=== PATIENT | female | born 1950 | race Caucasian/White ===

== ENCOUNTER 2024-04-17 14:09 | Inpatient (IN) | payer MEDICARE, SELFPAY ==
[2024-04-17] VITALS (23 sets, daily range): BP systolic 140–176; BP diastolic 75–105; PULSE 69–87; RESP 10–22; TEMP 36.9–37.2; O2SAT 93–97; BMI 24.9; BMI 26.1
--- OUTSIDE RECORDS SUMMARY | 2024-04-17 14:12 | XMS_ITS | Encounter Summary ---
Author Organization [facility] Address [address] [place] [address] Care Team Providers Care Hydroelectric Plant Operator Name Role Phone Shimon Xavier MD Primary Care Provider [phone] Gonzalez Bills MD Unavailable [phone] Gonzalez Bills MD Unavailable [phone] Encounter Details Date Type Department Care Team (Late st Contact Info) Description 12/21/2019 Ophth Exam [facility] - Eye Care Service Line [address] [place] [phone] Jose Rand MD [address] [place] [address] [phone] Social History Tobacco Use Types Packs/Day Years Used Date Smoking Tobacco: Never Assessed Comments Unknown Sex and Gender Information Value Date Recorded Sex Assigned at Not on file Legal Sex Female 3:27 AM INTELLECTUAL PROPERTY COUNSEL Gender Identity Not on file Sexual Orientation Not on file COVID-19 Exposure Response Date Recorded In the last month, have you been in contact with someone who was confirmed or suspected to have Coronavirus / COVID-19? No / Unsure 12/21/2019 12:04 PM INTELLECTUAL PROPERTY COUNSEL documented as of this encounter Plan of Treatment Not on file documented as of this encounter Visit Diagnoses Not on filedocumented in this encounter Care Teams Hydroelectric Plant Operator Relationship Specialty Start Date End Date Shimon Xavier MD [facility] [id number] [place] [address] PCP - General Family Medicine 12/21/19 Gonzalez Bills MD [address] [place] [phone] Assigned PCP 06/11/20 01/21/22 Gonzalez Bills MD [address] [place] [address] Assigned PCP 04/02/22 12/30/22 documented as of this encounter
--- OUTSIDE RECORDS SUMMARY | 2024-04-17 14:12 | XMS_ITS | Clinical Summary ---
Author Organization [employer] [facility] Address [facility] [place] [address] Care Team Providers Care Dandy Operator Name Role Phone Shimon Xavier MD Primary Care Provider Allergies No known active allergies Medications artificial tears, peg 400-propylene glycol, (Systane, propylene glycoL,) 0.4-0.3 % drop ophthalmic Place 1 Drop into the eye(s). 12/27/19 20 Active metroNIDAZOLE 0.75 % creamIndications:R osacea Apply topically to face 1-2 times daily 45 g 04/01/19 23 Active metoprolol succinate (TOPROL XL) 50 mg sustained-release tabletIndications: Anxiety Take 1 Tablet (50 mg) by mouth once daily. 90 Tablet 3 02/26/19 25 Active rosuvastatin (CRESTOR) 20 mg tabletIndications: Mixed hyperlipidemia Take 1 Tablet (20 mg) by mouth at bedtime. 90 Tablet 3 02/26/19 25 Active sertraline (ZOLOFT) 100 mg tabletIndications: Anxiety Take 1 Tablet (100 mg) by mouth once daily. 90 Tablet 3 02/26/19 25 Active gabapentin (NEURONTIN) 100 mg capsuleIndications :RLS (restless legs syndrome) Take 1 capsule 2 hours prior to bedtime. 90 Capsule 3 03/29/19 25 Active pramipexole (MIRAPEX) 0.5 mg tabletIndications: RLS (restless legs syndrome) Take 1 Tablet (0.5 mg) by mouth at bedtime. 90 Tablet 3 02/26/19 025 Discontin ued(*Med ineffecti ve) gabapentin (NEURONTIN) 100 mg capsuleIndications :RLS (restless legs syndrome) Take 2 hours prior to bedtime. 90 Capsule 3 03/29/19 25 025 Discontin ued(Reord er (E-cancel not sent)) Active Problems Problem Noted Date Diagnosed Date History of colonic polyps 05/10/2022 Overview (03/29/2024): 2022-no polyp; repeat 2027. 04/2018 3 polyp; largest 10 mm repeat 2021 Vitamin D deficiency 03/23/2020 Routine health maintenance 11/16/2018 Overview (04/02/2024): Colonoscopy, 04/28, recheck 5 yrs mammo 04/02 DEXA 09/24, nl Hemorrhoids 11/09/2018 Alopecia 04/28/2017 Anxiety 03/10/2017 HTN (hypertension) 06/21/2016 Ocular rosacea Resolved Problems Problem Noted Date Diagnosed Date Resolved Date Diverticular disease of large intestine 11/09/2018 11/05/2023 Polyp of colon 11/09/2018 11/05/2023 Encounters Date Type Department Care Team Description 04/17/2024 Nurse Triage [facility] [place] [id number] [place] [address] Shimon Xavier MD Dizziness 04/17/2024 Nurse/Clinic Staff Only [facility] [place] [id number] [place] [phone] Shimon Xavier MD Dizziness (Patient was in [employer] and checking out and got so dizzy she had to have someone walk her out to her car) 04/01/2024 10:00 AM CAPTAIN CANNERY TENDER Ancillary Procedure [facility] [address] [facility] [address] [place] [address] 04/01/2024 Travel 03/29/2024 10:30 AM CAPTAIN CANNERY TENDER Office Visit [facility] [place] [id number] [place] [address] Florecita Sosa MD memory issues; Medication Management (Would like to discuss changing her restless leg syndrome medication.) 03/29/[address] [address] Florecita Sosa MD Medication Management (Gabapentin) 03/29/2024 Travel 03/27/2024 Nurse Triage [address] [address] Shimon Xavier MD Error-please disregard (error) 02/27/2024 10:40 AM CAPTAIN CANNERY TENDER Office Visit [address] [address] Shimon Xavier MD Medicare ANNUAL (subsequent) Visit; Immunization/Inject ion 02/27/2024 Travel 02/02/[address] [address] Rema Kumar MD Refill Request (Rosuvastatin) 01/29/[address] [address] Rema Kumar MD Refill Request (pramipexole (MIRAPEX) 0.5 mg tablet) from Last 3 Months Immunizations Immunization Administration Dates Next Due COVID-19 vaccine (Moderna 100mcg/0.5mL) LUCIO MDV 05/01/2020,04/04/2020 COVID-19 vaccine (Moderna Lizandro kirk 50mcg/0.25mL) ROCAEL VALDES 01/05/2021 Influenza, High-dose Inactivated 01/15/2016,01/06 Influenza, IIV3 (Age 6-35 mos) 11/01/2008 Influenza, IIV3 (Age >=3 years) 01/17/2006,12/16 Influenza, Inactivated AIIV4 (Age 65+ Years) Preserv Free 01/17/2023,12/17/2021,01/05/2021,2019 Influenza, Inactivated IIV3 (Age 65+ Years) Preserv Free 02/27/2024,10/31/2016 Pneumococcal Poly,23-Valent (Pneumovax) 11/07/2019 Pneumococcal conj 13-Valent (Prevnar 13) 09/14/2018 Tdap 10/11/2018,08/15/2007 Tuberculin (PPD) 04/25/2016,04/11/2016 Family History Medical History Relation Name Comments Hypertension Brother 1 Heart Disease Brother 2 Stroke Father Good Health Mother Hypothyroidism Mother Relation Name Status Comments Brother 1 Brother 2 Father Stroke Mother (Age 92) Old Age/De mentia Social History Tobacco Use Types Packs/Day Years Used Date Smoking Tobacco: Never Passive Smoke Exposure: Never Smokeless Tobacco: Never Tobacco Cessation:Counseling Given: No Alcohol Use Standard Drinks/Week Comments Yes 0 (1 standard drink = 0.6 oz pur e alcohol) 4 glasses of wine everyday. PHQ-2 Answer Date Recorded PHQ-2 TOTAL SCORE 1 02/27/2024 Social Connections Answer Date Recorded Do you often feel lonely or isolated from those around you? 0 11/05/2023 Financial Resource Strain Answer Date R ecorded Difficulty of Paying Living Expenses 3 11/05/2023 Difficulty of Paying Living Expenses Not on file 11/05/2023 Food Insecurity Answer Date Recorded Do you worry your food will run out before you are able to buy more? 1 02/27/2024 Transportation Needs Answer Date Record ed Does lack of transportation keep you from medica l appointments? 1 02/27/2024 Does lack of transportation keep you from work, meetings or getting things that you need? 1 02/27/2024 Housing Stability Answer Date Recorded What is your housing situation today? 1 02/27/2024 Utilities Answer Date Recorded Do you have trouble paying f or utilities (for example, heat, electricity, water, phone)? 1 02/27/2024 Comments No Sex and Gender Information Value Date Recorded Sex Assigned at Not on file Legal Sex Female 7:30 AM CAPTAIN CANNERY TENDER Gender Identity Not on file Sexual Orientation Not on file Obstetrics History Para Term AB IAB SAB Ectopic Multiple Livin g Live Births 3 2 2 1 1 2 Date Outcome GA Total Labor Labor/2nd/3rd Weight Sex Type Anes PTL Kiera A1 A5 Name Clin Term Term SAB Last Filed Vital Signs Vital Sign Reading Time Taken Comments Blood Pressure 156/79 04/17/2024 1:13 PM CDT Pulse 89 04/17/2024 1:13 PM CDT Temperature 36.4 C (97.6 F) 04/17/2024 12:58 PM CDT Respiratory Rate 16 11/05/2023 1:27 PM CDT Oxygen Saturation 96% 04/17/2024 1:13 PM CDT Inhaled Oxygen Concentration - - Weight 69.4 kg (153 lb) 03/29/2024 10:36 AM CAPTAIN CANNERY TENDER Height 162.6 cm (5' 4) 03/29/2024 10:36 AM CAPTAIN CANNERY TENDER Body Mass Index 26.26 03/29/2024 10:36 AM CAPTAIN CANNERY TENDER Plan of Treatment Upcoming Encounters Date Type Department Care Team (Late st Contact Info) Description 07/04/2024 11:00 AM CDT Office Visit [facility] [address] [place] [address] Chris France MD [address] [place] [address] Health Maintenance Due Date Last Done Comments Hepatitis C screening for ag e 18-79 10/25/1967 Zoster (shingles) series for age 50+ (1 of 2) 10/25/1999 RSV vaccine for adults or (1 - Risk 60-74 years 1-dose series) 2009 COVID-19 vaccine series ( season) 2023 01/05/2021, 05/01/2020, 04/04/2020 Medicare Wellness for age 65+ 02/27/2025, 01/17/2023, 01/07/2022, Additional history exists BMI (ht and wt on same day) for age 18+ 03/29/2025 03/29/2024, 02/27/2024, 01/17/2023, Additional history exists Depression screening for age 12+ 04/01/2025 04/01/2024, 02/27/2024, 01/17/2023, Additional history exists Mammogram for age 45-75 04/01/2025 04/01/19, 11/03/2022, 05/19/2021, Additional history exists Colonoscopy through age 75 05/07/2027 05/06/2022, Tetanus booster 10/11/2028 10/11/2018, 08/15/2007 Lipids for age 45-75 02/26/2029 02/27/2024, 01/17/2023, 01/07/2022, Additional history exists DEXA/DXA scan for age 65+ Completed 09/20/2018 Tdap Completed 10/11/2018, 08/15/2007 Pneumococcal series for age 50+ Completed , 09/14/2018 Influenza Vaccine Completed 02/27/2024, , 12/17/2021, Additional history exists Procedures Procedure Name Priority Date/Time Associated Diagnosis Comments XR MAMMO EDGARDO BILAT SCREEN IMPLANT Routine 04/01/2024 11:27 AM CAPTAIN CANNERY TENDER Encounter for screening mammogram for malignant neoplasm of breast VITAMIN D 25 (DEFICIENCY) Routine 02/27/2024 11:05 AM CAPTAIN CANNERY TENDER Vitamin D deficiency BASIC METABOLIC PANEL Routine 02/27/2024 11:05 AM CAPTAIN CANNERY TENDER HTN (hypertension) HEMOGLOBIN Routine 02/27/2024 11:05 AM CAPTAIN CANNERY TENDER Routine health maintenance LIPID PANEL Routine 02/27/2024 11:05 AM CAPTAIN CANNERY TENDER Mixed hyperlipidemia SCAN-COLONOSCOPY 05/06/2022 10:0 0 AM CDT XR DXA BONE DENSITY 2 SITES AXIAL Routine 09/20/2018 2:29 PM CDT Bone disorder from Last 3 Months or Most Recently Relevant to Health Maintenance Results * XR MAMMO EDGARDO BILAT SCREEN IMPLANT (04/01/2024 11:27 AM CAPTAIN CANNERY TENDER) Anatomical Region Laterality Modality BREASTS, Breast Left, Breast Right Bilateral Mammography Impressions 04/01/2024 4:55 PM CAPTAIN CANNERY TENDER There is no radiographic evidence for malignancy. Recommend annual mammograms. MAMMOGRAM ASSESSMENT: ACR 2 Benign PATIENTS: You will also receive a letter with your examination results in an easy to read format. If you have questions about your results, please contact your referring provider. Narrative 04/01/2024 4:55 PM CAPTAIN CANNERY TENDER For Patients: As a result of the Century Cures Act, medical imaging exams and procedure reports are released immediately into your electronic medical record. You may view this report before your referring provider. If you have questions, please contact your health care provider. XR MAMMO EDGARDO BILAT SCREEN IMPLANT [[id number]] CLINICAL HISTORY: This is an asymptomatic 73 y.o. patient. INDICATION FOR EXAM: Mammogram Screening. TECHNIQUE: CC & MLO views were obtained. Implant displacement views were obtained. This study was evaluated with the assistance of Computer-Aided Detection. Breast Tomosynthesis was used in interpretation. COMPARISON FILMS: Yes 11/03/22 [facility] 05/19/21 [facility] FINDINGS: There are scattered areas of fibroglandular density. No suspicious masses or microcalcifications. There are breast implant(s) present. Unchanged extracapsular silicone on the right. us Shimon Xavier MD MAMMO Final Result * (ABNORMAL) VITAMIN D 25 (DEFICIENCY) (02/27/2024 11:05 AM CAPTAIN CANNERY TENDER) VITAMIN D,25-OH,TOTAL,IA 18(L) 30 - 100 ng/mL [facility] Comment: Vitamin D Status 25-OH Vitamin D: Deficiency: <20 ng/mL Insufficiency: 20 - 29 ng/mL Optimal: > or = 30 ng/mL For 25-OH Vitamin D testing on patients on D2-supplementation and patients for whom quantitation of D2 and D3 fractions is required, the [facility]() 25-OH VIT D, (D2,D3), LC/MS/MS is recommended: order code 26264 (patients >2yrs). See Note 1 Note 1 For additional information, please refer to http://education.[employer] Garden.Nubee/faq/UPN556 (This link is being provided for informational/ educational purposes only.) Blood BLOOD SPECIMEN / Unknown 02/27/2024 11:05 AM CAPTAIN CANNERY TENDER 02/27/2024 11:07 AM CAPTAIN CANNERY TENDER Narrative [facility] - 02/28/2024 3:33 AM CAPTAIN CANNERY TENDER FASTING:NO FASTING: NO Shimon Xavier MD SEND OUTS Final Result [facility] [address] [place] [address], [facility] [address] [place] [address] * HEMOGLOBIN (02/27/2024 11:05 AM CAPTAIN CANNERY TENDER) HEMOGLOBIN 15.3 11.7 - 15.5 g/dL [facility] Blood BLOOD SPECIMEN / Unknown 02/27/2024 11:05 AM CAPTAIN CANNERY TENDER 02/27/2024 11:07 AM CAPTAIN CANNERY TENDER Narrative [facility] - 02/28/2024 3:41 AM CAPTAIN CANNERY TENDER FASTING:NO FASTING: NO Shimon Xavier MD HEMATOLOGY Final Result Performing Organization Address City/[facility]/ZIP Co de Phone Number [facility] [address] [place] [address], [facility] [address] [place] [address] * (ABNORMAL) LIPID PANEL (02/27/2024 11:05 AM CAPTAIN CANNERY TENDER) [facility] CHOLESTEROL, TOTAL 223(H) <200 mg/dL [facility] HDL CHOLESTEROL 78 > OR = 50 mg/dL [facility] TRIGLYCERIDES 238(H) <150 mg/dL [facility] Comment: If a non-fasting specimen was collected, consider repeat triglyceride testing on a fasting specimen if clinically indicated. Mcghee et al. J. of Clin. Lipidol. 2015;9:129-169. LDL-CHOLESTEROL 109(H) mg/dL (calc) [facility] Comment: Reference range: <100 Desirable range <100 mg/dL for primary prevention; <70 mg/dL for patients with CHD or diabetic patients with > or = 2 CHD risk factors. LDL-C is now calculated using the Medhat-Nix calculation, which is a validated novel method providing better accuracy than the Friedewald equation in the estimation of LDL-C. Medhat SS et al. ARUN. 2013;310(19): 4418-6195 (http://education.[employer]/faq/YRQ619) CHOL/HDLC RATIO 2.9 <5.0 (calc) [facility] NON HDL CHOLESTEROL 145(H) <130 mg/dL (calc) [email or web address] Comment: For patients with diabetes plus 1 major ASCVD risk factor, treating to a non-HDL-C goal of <100 mg/dL (LDL-C of <70 mg/dL) is considered a therapeutic option. Blood BLOOD SPECIMEN / Unknown 02/27/2024 11:05 AM CAPTAIN CANNERY TENDER 02/27/2024 11:07 AM CAPTAIN CANNERY TENDER Narrative [facility] - 02/28/2024 4:30 AM CAPTAIN CANNERY TENDER FASTING:NO FASTING: NO Shimon Xavier MD CHEMISTRY Final Result [facility] [address] [place] [address], [facility] [address] * BASIC METABOLIC PANEL (02/27/2024 11:05 AM CAPTAIN CANNERY TENDER) [facility] GLUCOSE 94 65 - 139 mg/dL [facility] Comment: Non-fasting reference interval UREA NITROGEN (BUN) 16 7 - 25 mg/dL [facility] CREATININE 0.65 0.60 - 1.00 mg/dL [facility] EGFR 92 > OR = 60 mL/min/1. 73m2 [email or web address] BUN/CREATININE RATIO SEE NOTE: (calc) [email or web address] Comment: Not Reported: BUN and Creatinine are within reference range. SODIUM 140 135 - 146 mmol/L [facility] POTASSIUM 4.1 3.5 - 5.3 mmol/L [email or web address] CHLORIDE 103 98 - 110 mmol/L [facility] CARBON DIOXIDE 27 20 - 32 mmol/L [facility] ELECTROLYTE BALANCE 10 7 - 17 mmol/L (calc) [facility] CALCIUM 9.6 8.6 - 10.4 mg/dL [facility] Blood BLOOD SPECIMEN / Unknown 02/27/2024 11:05 AM CAPTAIN CANNERY TENDER 02/27/2024 11:07 AM CAPTAIN CANNERY TENDER Narrative [facility] - 02/28/2024 4:30 AM CAPTAIN CANNERY TENDER FASTING:NO FASTING: NO us Shimon Xavier MD CHEMISTRY Final Result [facility] [address] [place] [address], [facility] [address] [place] [address] * SCAN-COLONOSCOPY (05/06/2022 10:00 AM CDT) Narrative Procedure Note Srinath Cisneros MD - 05/06/2022 9:17 AM CDT [facility] [address] [facility] [address], [address], [place] [address] Patient Name: Liudmila Chávez Gender: Female Exam Date: 05/06/2022 Visit Number: [id number] Age: 71 Years 6 Months Date of : 1950 Attending MD: Srinath Cisneros MD Medical Record#: [id number] ----- Procedure: Colonoscopy Indications: Previous adenomatous polyp(s), high risk colorectal cancerscreening Referring MD: Referral Self Primary MD: Shimon Xavier MD Medications: Admitting Medications: 0.9% Normal Saline at TKO Intra Procedure Medications: Patient received monitored anesthesia care. Complications: No immediate complications Procedure: An examination of the heart and lungs was performed and found to be withinacceptable limits. The patient was therefore deemed a reasonablecandidate for endoscopy and monitored anesthesia care. The risks and benefits of the procedure were explained to the patient.After obtaining informed consent, the patient received monitoredanesthesia care and I passed the scope without difficulty via the rectum to the cecum. The appendiceal orificeand ic valve were identified. The scope was retroflexed during theexamination The quality of the prep was good (Pierce/Gat Split). This was a complete examination throughout the entire colon. Findings: Diverticulosis. Location: - cecum - ascending colon - transverse colon - descending colon - sigmoid. Anal canal: internal hemorrhoid(s) Remainder of the exam is normal. Impression: Hemorrhoids, internal Diverticulosis of colon without diverticulitis Plan Repeat colonoscopy in 5 years. We will attempt to contact you at appropriate intervals via U.S. mail. Wemay not be able to find you or contact you at that time, therefore youshould know that the responsibility for following our recommendation restswith you. If you don't hear from us at the time your procedure is due,please contact our office to schedule an appointment. If your contactinformation should change, please contact our office so that we can updateyour records. Recommendation Comments: High fiber diet Electronically signed by: Srinath Cisneros MD 05/06/2022 Medications: Medication Dose Sig Description PRN Status PRN Reason Comments Advil UNKNOWN take 2 Tablet by oral route every day as needed with foodas needed Y taking as directed biotin UNKNOWN take 1 capsule by oral route every day N taking asdirected Crestor 20 mg tablet 20 mg take 1 tablet by oral route every day Ntaking as directed doxycycline hyclate UNKNOWN take 1 capsule by oral route every 12 hours Ntaking as directed metoprolol succinate ER 50 mg tablet,extended release 24 hr 50 mg take 1tablet by oral route 2 times every day N taking as directed Mirapex 0.5 mg tablet 0.5 mg take 1 Tablet by oral route every day Ntaking as directed Multivitamin unknown Oral unknown N taking as directed sertraline 100 mg tablet 100 mg take 1.5 Tablet by oral route everymorning N taking as directed Vitamin D3 UNKNOWN take 2 Tablet by Oral route once N taking as directed Allergies: Medication Name Ingredient Reaction Comment NO KNOWN ALLERGIES LATEX pt uncertain Vital Signs: Date Time Systolic Diastolic Height Weight BMI 05/06/2022 9:38 AM 145 64 64 in 149.61 25.70 Race: White Ethnicity: Not or Preferred Language: Mozambican cc: Shimon Xavier MD [facility] [phone] us Srinath EGAN OTHER Deepa l Result * XR DXA BONE DENSITY 2 SITES AXIAL (09/20/2018 2:29 PM CDT) Anatomical Region Laterality Modality Spine, HIPS, HIPL, HIPR Computed Radiography Narrative 09/20/2018 4:39 PM CDT Your patient LIUDMILA CHÁVEZ completed a BMD test on 09/20/2018 using the turboBOTZ DXA System (analysis version: 13.60) manufactured by [employer]. The following summarizes the results of our evaluation. PATIENT BIOGRAPHICAL: Name: LIUDMILA CHÁVEZ I Date: 1950 Height: 64.0 in. Gender: Female Exam Date: 09/20/2018 Weight: 140.0 lbs. Indications: ., Postmenopausal. Fractures: None. Treatments: Vitamin D. ASSESSMENT: The BMD measured at Femur Neck Left is 0.902 g/cm with a T-score of -1.0. Bone density is up to 10% below young normal. This patient is considered normal according to World Health Organization (WHO) criteria. Fracture risk is low. The probability of a major osteoporotic fracture is 8.5% within the next ten years. The probability of a hip fracture is 0.8% within the next ten years. Site Region Measured Measured WHO Young Adult BMD Date Age Classification T-score AP Spine L1-L4 09/20/2018 68.9 Normal 0.4 1.230 g/cm DualFemur Neck Left 09/20/2018 68.9 Normal -1.0 0.902 g/cm DualFemur Neck Right 09/20/2018 68.9 Normal -0.8 0.921 g/cm DualFemur Total Left 09/20/2018 68.9 Normal 0.0 1.003 g/cm DualFemur Total Right 09/20/2018 68.9 Normal -0.1 0.996 g/cm World Health Organization (WHO) criteria for post-menopausal, Women: Normal: T-score at or above -1 SD Osteopenia: T-score between -1 and -2.5 SD Osteoporosis: T-score at or below -2.5 SD RECOMMENDATIONS: All patients should ensure an adequate intake of dietary calcium and vitamin D. FOLLOW-UP: People with diagnosed cases of osteoporosis or at high risk for fracture should have regular bone mineral density tests. For patients eligible for Medicare, routine testing is allowed once every 2 years. The testing frequency can be increased to one year for patients who have rapidly progressing disease, those who are receiving or discontinuing medical therapy to restore bone mass, or have additional risk factors. Based on these results, a follow-up exam is recommended in September 2020 Rema Kumar MD DEXA Final Res ult from Last 3 Months or Most Recently Relevant to Health Maintenance Additional Health Concerns Infection Onset Date Last Indicated Rule-Out C.diff 07/27/2020 07/27/2020 Insurance BLUE CROSS MEDICARE ADVANTAGE MR * Guarantor: [employer] Account Type Relation to Patient Date of Phone Billing Address [facility] [employer] Employer [phone] [address] Care Teams Dandy Operator Relationship Specialty [place] [address] [address] [phone] PCP - General Family Practice 02/27/24
--- OUTSIDE RECORDS SUMMARY | 2024-04-17 14:12 | XMS_ITS | Clinical Summary ---
Author Organization [facility] Address [address] [place] [id number] Care Team Providers Care Cost Accounting Manager Name Role Phone Shimon Xavier MD Primary Care Provider [phone] Allergies No known active allergies Medications sertraline (ZOLOFT) 100 MG tablet Take 100 mg by mouth daily 1 9 Active sertraline (ZOLOFT) 100 MG tablet Take 100 mg by mouth 9 Active metoprolol succinate ER (TOPROL-XL) 50 MG 24 hr tablet Take 50 mg by mouth daily 3 9 Active metoprolol succinate ER (TOPROL-XL) 50 MG 24 hr tablet Take 50 mg by mouth 9 Active erythromycin (ROMYCIN) 5 MG/GM ophthalmic ointment APPLY A SMALL AMOUNT INTO BOTH EYES ONCE A DAY 6 9 Active doxycycline monohydrate (MONODOX) 50 MG capsule Take 50 mg by mouth 9 Active doxycycline monohydrate (MONODOX) 50 MG capsule 2 9 Active RESTASIS 0.05 % ophthalmic emulsion 2 9 Active predniSONE (DELTASONE) 20 MG tablet Take two tablets (= 40mg) each day for 5 (five) days 10 tablet 0 Active Lidocaine (LIDOCARE) 4 % Patch Place 1 patch onto the skin every 24 hours To prevent lidocaine toxicity, patient should be patch free for 12 hrs daily. 10 patch 0 Active polyvinyl alcohol (LIQUIFILM TEARS) 1.4 % ophthalmic solution Apply 1 drop to eye as needed for dry eyes 15 mL 1 0 Active prednisoLONE acetate (PRED FORTE) 1 % ophthalmic suspensionIndicat ions:Corneal abrasion, left, subsequent encounter Place 1-2 drops Into the left eye 2 times daily 1 Bottle 1 0 Active erythromycin (ROMYCIN) 5 MG/GM ophthalmic ointmentIndicatio ns:Corneal abrasion, left, subsequent encounter Apply a small amount at night to the left eye 1 Tube 3 0 Active polyethylene glycol-propylene glycol PF (SYSTANE PRESERVATIVE FREE) 0.4-0.3 % SOLN opthalmic solutionIndicatio ns:Corneal abrasion, left, subsequent encounter Place 1 drop into both eyes every hour as needed for dry eyes 30 each 11 0 Active Resolved Problems Problem Noted Date Diagnosed Date Resolved Date Acute left-sided low back pa in with left-sided sciatica 12/12/2018 02/26/2019 Family History Medical History Relation Comments Diabetes Brother Glaucoma No family hx of Hypertension No family hx of Macular Degeneration No family hx of Relation Status Comments Brother Social History Tobacco Use Types Packs/Day Years Used Date Smoking Tobacco: Never Smokeless Tobacco: Never PHQ-2 Answer Date Recorded PHQ-2 Score 0 12/27/2019 Adolescent Education Answer Date Record ed Getting School Help Needed Not on file 11/03 Comments Unknown Sex and Gender Information Value Date Recorded Sex Assigned at Not on file Legal Sex Female 3:27 AM MANAGER BABY Gender Identity Not on file Sexual Orientation Not on file Last Filed Vital Signs Vital Sign Reading Time Taken Comments Blood Pressure 148/87 12/21/2019 5:46 PM MANAGER BABY Pulse 69 12/21/2019 5:46 PM MANAGER BABY Temperature 37.1 C (98.7 F) 12/21/2019 2:15 PM MANAGER BABY Respiratory Rate 18 12/21/2019 5:46 PM MANAGER BABY Oxygen Saturation 95% 12/21/2019 5:46 PM MANAGER BABY Inhaled Oxygen Concentration - - Weight 63.5 kg (140 lb) 04/02/2019 4:26 PM MANAGER BABY Height 162.6 cm (5' 4) 04/02/2019 4:26 PM MANAGER BABY Body Mass Index 24.03 04/02/2019 4:26 PM MANAGER BABY Plan of Treatment Health Maintenance Due Date Last Done Comments ADVANCE CARE PLANNING 1950 ANNUAL REVIEW OF HM ORDERS 1950 CT COLONOGRAPHY 1950 FIT 1950 FLEX SIG 1950 sDNA (Cologuard) 1950 HEPATITIS C SCREENING 10/25/1967 LIPID 1989 ZOSTER IMMUNIZATION (1 of 2) 10/25/1999 FALL RISK ASSESSMENT 12/26/2020 12/27/2019 GLUCOSE 11/17/2021 11/17/2018 MEDICARE ANNUAL WELLNESS VISIT 01/07/2023 01/07/2022, 01/07/2022, 01/05/2021, Additional history exists COVID-19 Vaccine ( season) 2023 01/05/2021, 05/01/2020, 04/04/2020 INFLUENZA VACCINE (#1) 2023 , 01/05/2021, 10/29/2019, Additional history exists PHQ-2 (once per calendar year) 2024 12/27/2019 RSV VACCINE (1 - 1-dose 75+ series) 2024 MAMMO SCREENING 11/03/2024 11/03/2022, 05/07, 08/31/2018 DTAP/TDAP/TD IMMUNIZATION (3 - Td or Tdap) 10/11/2028 10/11/2018, 08/15/2007 COLONOSCOPY 11/09/2028 11/09/2018 COLORECTAL CANCER SCREENING 11/09/2028 DEXA 09/20/2033 09/20/2018 Pneumococcal Vaccine: 50+ Years Completed 11/07/2019, 09/14/2018 HPV IMMUNIZATION Aged Out No longer e ligible based on patient's age to complete this topic MENINGITIS IMMUNIZATION Aged Out No l onger eligible based on patient's age to complete this topic Procedures Procedure Name Priority Date/Time Associated Diagnosis Comments MA SCREENING WITH IMPLANTS BILATERAL W/ IRINEO Routine 11/03/2022 1:06 PM CDT Visit for screening mammogram BASIC METABOLIC PANEL STAT 11/17/2018 10:57 PM CDT Rectal bleeding from Last 3 Months or Most Recently Relevant to Health Maintenance Results * MA Screen with Implants Bilateral w/Irineo (11/03/2022 1:06 PM CDT) Anatomical Region Laterality Modality Breast Bilateral Mammography Impressions 11/04/2022 7:55 AM CDT IMPRESSION: ACR BI-RADS Category 2: Benign RECOMMENDED FOLLOW-UP: Annual routine screening mammogram The results and recommendations of this examination will be communicated to the patient. Aaron Clemente MD Narrative 11/04/2022 7:55 AM CDT BILATERAL FULL FIELD DIGITAL SCREENING MAMMOGRAM WITH TOMOSYNTHESIS Performed on: 11/03/22 Compared to: 05/19/2021 and 08/31/2018 Technique: This study was evaluated with the assistance of Computer-Aided Detection. Breast Tomosynthesis was used in interpretation. Findings: The breasts have scattered areas of fibroglandular density. There are breast augmentation changes in both breasts. There is no radiographic evidence of malignancy. us Shimon Xavier MD IMG MAMMOGRAPHY ORDERABLE S Final Result * (ABNORMAL) Basic metabolic panel (11/17/2018 10:57 PM CDT) Sodium 140 133 - 144 mmol/L 11/17/2018 11:26 PM CDT [facility] Potassium 3.8 3.4 - 5.3 mmol/L 11/17/2018 11:26 PM T [facility] Chloride 109 94 - 109 mmol/L 11/17/2018 11:26 PM T [facility] Carbon Dioxide 20 20 - 32 mmol/L 11/17/2018 11:32 PM CDT [facility] Anion Gap 11 3 - 14 mmol/L 11/17/2018 11:[facility] Glucose 108(H) 70 - 99 mg/dL 11/17/2018 11:32 PM T [facility] Urea Nitrogen 21 7 - 30 mg/dL 11/17/2018 11:32 PM T [facility] Creatinine 0.55 0.52 - 1.04 mg/dL 11/17/2018 11:32 PM T [facility] GFR Estimate >90 >60 mL/min/{1. 73_m2} 11/17/2018 11:32 PM CDT [facility] Comment: Non GFR Calc Starting 01/23/2018, serum creatinine based estimated GFR (eGFR) will be calculated using the Chronic Kidney Disease Epidemiology Collaboration (CKD-EPI) equation. GFR Estimate If Black >90 >60 mL/min/{1. 73_m2} 11/17/2018 11:32 PM CDT [facility] Comment: GFR Calc Starting 01/23/2018, serum creatinine based estimated GFR (eGFR) will be calculated using the Chronic Kidney Disease Epidemiology Collaboration (CKD-EPI) equation. Calcium 9.0 8.5 - 10.1 mg/dL 11/17/2018 11:32 PM CDT [facility] Blood specimen (specimen) 11/17/2018 10:57 PM CDT 11/17/2018 11:04 PM CDT Donavan Gonzalez MD LAB - BLOOD ORDERABLES Final Result [facility] [address] [place] [address], [facility] [phone] [facility] [address] [place] [address], [facility] [phone] from Last 3 Months or Most Recently Relevant to Health Maintenance Insurance [facility] MEDICARE ADVANTAGE Care Teams Cost Accounting Manager Relationship Specialty Start Date End Date Shimon Xavier MD [facility] [id number] [place] [address] PCP - General Family Medicine 12/21/19
--- NOTE | 2024-04-17 14:36 | ED_ITS ---
HPI - Dizziness General Time Seen by Provider: 14:36 Date Seen: 04/17/24 Chief Complaint: Dizziness/Vertigo Stated Complaint: Dizzyness Time Seen by Provider: 04/17/24 14:18 Source: patient and RN notes reviewed Mode of arrival: ambulatory Limitations: no limitations History of Present Illness HPI Narrative: This 73-year-old female is coming into the ER of her own accord with sense of gait imbalance and feeling dizzy. She woke feeling dizzy, describes it more as a sense of imbalance. She has not noticed any palpitations, any irregular heartbeat or chest symptoms with this. She admits that she maybe felt a little off yesterday morning as well. Definitely was not normal this morning. She has had vertigo before and this feels different. She did stumble while at the [employer] this morning. 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 She is admittedly feeling better now. Denies any headache, no new visual changes. She endorses bilateral cataracts for which she is going to need surgery but has not noted any new vis ual issues. She has not been sick with anything, no fevers chills, no trauma. MD elicited complaint: dizziness and difficulty walking Related Data Home Medications ?Medication ?Instructions ?Recorded ?Confirmed cyclosporine 0.05 % eye drops in a drp ophthalmic (eye) 07/22/22 07/22/22 dropperette (Restasis) doxycycline monohydrate 50 mg 50 mg PO DAILY 07/22/22 04/17/24 capsule metoprolol succinate 50 mg 50 mg PO DAILY 07/22/22 04/17/24 tablet,extended release 24 hr metronidazole 0.75 % topical cream 1 applic topical BID 07/22/22 04/17/24 pramipexole 0.5 mg tablet 0.5 mg PO QPM 07/22/22 04/17/24 rosuvastatin 20 mg tablet 20 mg PO QPM 07/22/22 04/17/24 sertraline 100 mg tablet 100 mg PO DAILY 07/22/22 04/17/24 gabapentin 100 mg capsule 100 mg PO QPM 04/17/24 04/17/24 Allergies Allergy/AdvReac Type Severity Reaction Status Date / Time No Known Drug Allergies Allergy Verified 04/17/24 16:21 Review of Systems Status of ROS: Reports: 6 or more systems reviewed and unremarkable except as noted in History and below PFSH PFSH Social History What is your current living situation?: I presently have a place to live Problems where you live: no known problems Problems where you live details: none In the past 12 months, utilities in danger of being shut off: no In past 12 months, lack of transportation kept you from medical appts, meetings, work, or getting things needed for daily living: no In the past 12 mos, have been you worried that your food would run out before you had money to buy more?: never true In the past 12 mos, the food you bought just didn't last and you didn't have money to buy more?: never true Smoking Status: Never smoker How often do you have a drink containing alcohol: 2-3 times a week Alcohol type: wine How many standard drinks containing alcohol do you have on a typical day: 1 or 2 How often do you have six or more drinks on one occasion: Never AUDIT-C Alcohol total score: 3 Non-prescribed substance use: denies use Caffeine: Yes (1 cup coffee) How often does anyone, including family, friends and others, physically hurt you : never How often does anyone, including family, friends and others, insult or talk down to you: never How often does anyone, including family, friends and others, threaten you with harm: never How often does anyone, including family, friends and others, scream or curse at you: never service: No Exam Const: Vital Signs, click to edit/add: Vital Signs - 24 hr 04/17/24 14:25 04/17/24 15:31 04/17/24 15:33 Temperature 98.5 F Pulse Rate 72 Pulse Rate [Pulse Oximeter] 77 Respiratory Rate 16 18 Blood Pressure 140/75 H Blood Pressure [Ri ght Upper Arm] 157/79 H Pulse Oximetry 94 95 95 Oxygen Delivery Me thod Room Air 04/17/24 15:45 04/17/24 17:04 04/17/24 17:05 Temperature Pulse Rate 76 Pulse Rate [Pulse Oximeter] Respiratory Rate 11 L 16 20 Blood Pressure 153/105 H Blood Pressure [Ri ght Upper Arm] Pulse Oximetry 97 Oxygen Delivery Me thod 04/17/24 17:15 04/17/24 17:30 04/17/24 17:45 Temperature Pulse Rate 80 80 79 Pulse Rate [Pulse Oximeter] Respiratory Rate 14 Blood Pressure Blood Pressure [Ri ght Upper Arm] Pulse Oximetry 97 95 96 Oxygen Delivery Me thod 04/17/24 18:00 04/17/24 18:15 04/17/24 18:20 Temperature Pulse Rate 77 75 77 Pulse Rate [Pulse Oximeter] Respiratory Rate 15 13 10 L Blood Pressure 146/88 H Blood Pressure [Ri ght Upper Arm] Pulse Oximetry 97 97 96 Oxygen Delivery Me thod 04/17/24 18:21 04/17/24 18:30 04/17/24 18:45 Temperature Pulse Rate 78 75 79 Pulse Rate [Pulse Oximeter] Respiratory Rate 20 16 22 Blood Pressure Blood Pressure [Ri ght Upper Arm] Pulse Oximetry 96 97 97 Oxygen Delivery Me thod 04/17/24 19:00 04/17/24 20:00 04/17/24 20:15 Temperature Pulse Rate 77 71 69 Pulse Rate [Pulse Oximeter] Respiratory Rate 13 22 20 Blood Pressure Blood Pressure [Ri ght Upper Arm] Pulse Oximetry 96 94 96 Oxygen Delivery Me thod 04/17/24 20:30 04/17/24 20:41 04/17/24 20:45 Temperature Pulse Rate 74 72 72 Pulse Rate [Pulse Oximeter] Respiratory Rate 18 16 Blood Pressure 159/81 H Blood Pressure [Ri ght Upper Arm] Pulse Oximetry 93 95 95 Oxygen Delivery Me thod 73-year-old female is alert, interactive , no apparent distress. She is sitting up on the edge of the exam bed. Pupils are equal round reactive, extraocular muscles intact, no significant nystagmus. She has about 2 or 3 beats of lateral horizontal nystagmus both directions which attenuate. Symmetrical facial function, speech is normal. Neck is supple, no adenopathy or masses, no jugular venous distension. Lungs are clear, good air entry, no wheezing or crackles. CV regular rate and rhythm, no murmur, normal S1-S2. She has 5/5 symmetric strength throughout hands, arms, shoulders, feet, ankles, lower extremities. Normal sensation. She has normal heel to payton, gait seems normal at this point, do not feel she has a wide-based gait. She has normal rapid alternating finger movements but on [id number], misses her nose and hits her upper lip ini tially verses hitting the target of her nose on the left right away. Documenting provider has reviewed patient's vital signs: yes Course Course ED Course: Patient definitely seems to have neurologic change, this could be vertigo equivalent. Discuss the difference between central and peripheral, the difficulty in diagnosing this. Will proceed with head CT noncontrast, plan on doing CT head and neck angiography. Will have her on cardiac monitoring, obtain EKG, follow-up pulse oximetry. Will get appropriate labs. Will do a stroke Neurology consult. This is not a stroke code as patient is well out of time frame for that. Symptoms are a bit more vague in the fact of dizziness that does not necessarily feel like vertigo but she is complaining of gait imbalance. Symptoms were worse reportedly prior to arrival. Reevaluation(s) Time of Reevaluation #1: 18:24 Reevaluation #1: Patient actually is feeling a bit better now. Have reviewed with her my discussion with stroke Neurology and her MRI brain noncontrast as well as CT results. There is a possible right vertebral artery dissection, evidence of old strokes on MR but nothing acute. She will be getting a full aspirin, have further MRA imaging tomorrow, Neurology has recommended observation. Consultations Consultation #1: Have spoken with Neurology Dr. Forde. She agrees with proceeding with head CT and CT angiography. We will talk after these are back. 4:00 p.m.: Dr. Forde did call back, there are no head images in. Did call over to Radiology, patient is on the table in CT, need another IV started due to issues. Dr. Forde did states that if the head CT, CT angiography is normal, would proceed with a brain MRI. I will order the brain MRI as we are near the end of coverage for the day. 5:00 p.m.: Did update Stroke Neurology whom is now Dr. Moss. She cannot see EMR images of the brain he yet, reviewed with her they were just done, when she can see the EMR images of the brain, will call me back. Did review with her the concern on the CT angio of possible right vertebral artery dissection. She will look at all of this and contact me back. 6:[address] Moss called back, she does not see anything acute on the MRI. She does see the stenotic area on the vertebral artery. She believes patient should be observed overnight, given a 325 mg aspirin. She states that MR can miss posterior stroke strokes in some cases early on. She would like this patient to have MRA of head neck, make note of dissection protocol with fat saturation given the concern for the vertebral artery dissection. They will see her tomorrow. Will update the patient and the hospitalist. 7:56 p.m.: Did speak with Dr. Moss Time: 15:12 Consultation #2: Have spoken with hospitalist Kiley Farmer, she accepts patient. Time: 18:37 Vital Signs Vital signs: Initial Vital Signs Temperature 98.5 F 04/17/24 14:25 Temperature Source Temporal Artery Scan 04/17/24 14:25 Pulse Rate 77 04/17/24 14:25 Respiratory Rate 16 04/17/24 14:25 Blood Pressure 157/79 H 04/17/24 14:25 Blood Pressure Mean 105 04/17/24 14:25 Pulse Oximetry 94 04/17/24 14:25 Oxygen Delivery Method Room Air 04/17/24 14:25 Vital Signs Temperature 98.5 F 04/17/24 14:25 Pulse Rate 77 04/17/24 14:25 Respiratory Rate 16 04/17/24 14:25 Blood Pressure 157/79 H 04/17/24 14:25 Pulse Oximetry 94 04/17/24 14:25 Oxygen Delivery Method Room Air 04/17/24 14:25 Temperature 99.0 F 04/17/24 20:59 Pulse Rate 75 04/17/24 20:59 Respiratory Rate 18 04/17/24 20:59 Blood Pressure 176/99 H 04/17/24 20:59 Pulse Oximetry 94 04/17/24 20:59 Oxygen Delivery Method Room Air 04/17/24 20:59 Medications Administered Medications: Discontinued Medications Generic Name Dose Route Start Last Admin Trade Name Freq PRN Reason Stop Dose Admin Aspirin 325 mg 04/17/24 18:25 04/17/24 18:39 Aspirin Ec 325 Mg Tablet PO 04/17/24 18:26 325 mg ONCE ONE Administration MDM - Dizziness Lab Data Attestation: I reviewed the patient's lab results. Labs: Lab Results 04/17/24 Range/Units 15:18 WBC 5.46 (4.50-11.00) K/uL RBC 4.26 (4.00-5.20) m/uL Hgb 13.9 (12.0-16.0) gm/dL Hct 43.1 (33.0-51.0) % MCV 101 H (80-100) fL MCH 33 (26-34) pg MCHC 32 (32-36) gm/dL RDW Coeff of Esme 12.8 (11.5-15.5) % Plt Count 190 (140-440) K/uL Neut % (Auto) 55.8 (42.0-72.0) % Lymph % (Auto) 31.1 (20-44) % [place] % (Auto) 8.4 (0.0-11.0) % Eos % (Auto) 4.0 (0.0-7.0) % Baso % (Auto) 0.5 (0.0-3.0) % Neut # (Auto) 3.04 (1.7-7.0) K/uL Lymph # (Auto) 1.70 (0.90-2.90) K/uL [place] # (Auto) 0.50 (0.00-0.90) K/UL Eos # (Auto) 0.22 (0.00-0.50) K/uL Baso # (Auto) 0.03 (0.00-0.30) K/uL Abs Immat Gran (auto) 0.01 (0.00-0.30) K/uL Imm/Tot Granulo (auto) 0.2 % INR 1.07 (0.91-1.10) APTT 25 (23-33) Seconds Sodium 136 (135-149) mmol/L Potassium 3.8 (3.6-5.1) mmol/L Chloride 103 (96-114) mmol/L Carbon Dioxide 25 (20-32) mmol/L Anion Gap 8 (7-15) mEq/L BUN 11 (7-30) mg/dL Creatinine 0.5 (0.5-1.5) mg/dL Estimated Creat Clear 42.62 Estimated GFR 98 ml/min Glucose 115 (60-115) mg/dL Calcium 8.8 (8.4-10.6) mg/dL Total Bilirubin 0.6 (0.1-1.5) mg/dL AST 64 H (12-35) U/L ALT 53 H (4-35) U/L Alkaline Phosphatase 71 (40-150) U/L Total Protein 7.0 (6.0-8.3) g/dL Albumin 4.3 (3.3-5.0) g/dL Imaging Data CT scan - head: Attestation: I have reviewed the pertinent imaging results. Radiologist's impression: Patient: JEANIE LAMAR Facility:?[facility] Patient ID:?[id number] Site Patient ID:?[id number] Site :?1950 Study:?CT-Head W/O NEURO [id number]/17/2024 4:16:27 PM Ordering Physician:Kristine Roque Final Report: INDICATION: Dizziness. TECHNIQUE: Multiplanar CT examination of the head was performed without the use of intravenous contrast. COMPARISON: None. FINDINGS: No loss of suggs-white differentiation to suggest recent territorial infarct. The insular cortex is preserved. No hyperdense MCA sign. ASPECT score of 10. No intracranial hemorrhage, abnormal extra-axial fluid collection, hydrocephalus or midline shift. The ventricles and cerebral sulci are prominent in caliber, compatible with mild generalized parenchymal volume loss. There is ill-defined hypoattenuation of the supratentorial white matter diffusely, nonspecific but consistent with chronic microvascular ischemic changes the basal cisterns are patent. The paranasal sinuses and mastoid air cells remain clear. The orbits and calvarium are unremarkable. The cerebellar tonsils are normal position. IMPRESSION: 1. No recent territorial infarct. ASPECT score of 10. 2. No intracranial hemorrhage or midline shift. 3. Mild generalized parenchymal volume loss with chronic microvascular ischemic changes. Please note that all CT scans at this facility use dose modulation, iterative reconstruction, and/or weight-based dosing when appropriate to reduce radiation dose to as low as reasonably achievable. Dictated by Naren Ferro MD @ 04/17/2024 4:25:15 PM (Electronic Signature) CT angio head and neck: Attestation: I have reviewed the pertinent imaging results. Radiologist's impression: Patient: JEANIE LAMAR Facility:?[facility] Patient ID:?[id number] Site Patient ID:?[id number] Site :?1950 Study:?CT-Head Angio 95CC ISOVUE NONACUTE-04/17/2024 4:16:50 PM Ordering Physician:Kristine Roque Preliminary Report: INDICATION: Dizziness, focal neurological deficit. TECHNIQUE: Multiplanar CT angiogram of the head was performed after the administration of 95 mL of Omnipaque 350 intravenous contrast. COMPARISON: None. PRELIMINARY FINDINGS: The intracranial ICA segments remain patent. There are mild atherosclerotic calcifications of the cavernous and supraclinoid ICA segments bilaterally. The MCAs remain normal in course and caliber and are patent bilaterally. The bilateral ACAs remain patent. There is tapering of the intradural segment of the right vertebral artery, raising the possibility of a vertebral artery dissection. The left vertebral artery appears within normal limits. The basilar artery is unremarkable. The visualized cerebellar arteries are unremarkable. The director of agronomy are normal in course and caliber and remain patent. No cerebral aneurysms or large vessel occlusions. PRELIMINARY IMPRESSION: 1. Severe tapering of the intradural segment of the right vertebral artery raises the possibility of a vertebral artery dissection. 2. No large vessel occlusion identified. Full final dictated report to follow. Dictated by Naren Ferro MD @ 04/17/2024 4:32:42 PM Read by:?Naren Ferro MD @04/17/2024 4:33:37 PM Patient: JEANIE LAMAR Facility:?[facility] Patient ID:?[id number] Site Patient ID:?[id number] Site :?1950 Study:?CT-Neck Angio Angio 95CC ISOVUE NONACUTE-04/17/2024 4:17:07 PM Ordering Physician:Kristine Roque Preliminary Report: INDICATION: Dizziness. Focal neurological deficit. TECHNIQUE: Multiplanar CT angiogram of the neck was performed after the administration of 95 mL of Omnipaque 350 intravenous contrast. COMPARISON: None. PRELIMINARY FINDINGS: The aortic arch has a conventional anatomy. The great vessels remain patent. The common carotid arteries remain patent. Mild atherosclerotic calcifications of the carotid bifurcations bilaterally. The cervical ICA segments remain patent bilaterally. The origins of the common carotid arteries remain patent. Left vertebral dominant system. The cervical vertebral arteries remain patent. The origins of the vertebral arteries remain patent. The visualized thyroid is unremarkable. The visualized lung borjas are clear. PRELIMINARY IMPRESSION: No hemodynamically significant stenoses of the cervical arterial vasculature. Full final dictated report to follow. Dictated by Naren Ferro MD @ 04/17/2024 4:35:22 PM Read by:?Naren Ferro MD @04/17/2024 4:37:27 PM MR Brain: Attestation: I have reviewed the pertinent imaging results. Radiologist's impression: Patient: JEANIE LAMAR Facility:?[facility] Patient ID:?[id number] Site Patient ID:?[id number]. Site :?1950 Study:?MRI-Head W/O-04/17/2024 5:08:10 PM Ordering Physician:?Arsalan Roque Final Report: INDICATION: Dizziness. Gait imbalance. TECHNIQUE: Brain MRI without contrast. COMPARISON: None. FINDINGS: No evidence of acute ischemia. No evidence of acute or chronic intracranial blood products. Scattered FLAIR hyperintense foci within the supratentorial white matter and brainstem, typical for chronic microvascular ischemic change. Small chronic lacunar infarct within the right posterior putamen. Moderate generalized parenchymal volume loss. No mass effect or herniation. No hydrocephalus or extra-axial collections. The pituitary gland, parasellar structures and optic chiasm are normal. Small chronic infarct within the right posterior cerebellum. All the major intracranial vascular structures demonstrate normal flow-related signal. The orbital contents are normal. No calvarial or skull base marrow replacing process. No obstructive sinus disease. No extracranial soft tissue findings. IMPRESSION: 1. No acute infarction or other acute intracranial pathology. 2. Minimal chronic microvascular ischemic changes. Small chronic lacunar infarct within the right posterior putamen. Small chronic infarct right posterior cerebellum. Dictated by Wm Morillo MD @ 04/17/2024 5:35:05 PM (Electronic Signature) ECG Data Attestation: I personally reviewed and interpreted this ECG as follows: (Normal sinus rhythm, 72 beats per minute.) ECG interpretation date: 04/17/24 ECG interpretation time: 15:07 Discharge Plan Discharge Clinical Impression: Dizziness, Gait abnormality Patient Disposition: Admitted As Observation
--- NOTE | 2024-04-17 14:48 | CRLHL7_ITS ---
For Patients: As a result of the Century Cures Act, medical imaging exams and procedure reports are released immediately into your electronic medical record. You may view this report before your referring provider. If you have questions, please contact your health care provider. INDICATION: Dizziness. TECHNIQUE: Multiplanar CT examination of the head was performed without the use of intravenous contrast. COMPARISON: None. FINDINGS: No loss of suggs-white differentiation to suggest recent territorial infarct. The insular cortex is preserved. No hyperdense MCA sign. ASPECT score of 10. No intracranial hemorrhage, abnormal extra-axial fluid collection, hydrocephalus or midline shift. The ventricles and cerebral sulci are prominent in caliber, compatible with mild generalized parenchymal volume loss. There is ill-defined hypoattenuation of the supratentorial white matter diffusely, nonspecific but consistent with chronic microvascular ischemic changes the basal cisterns are patent. The paranasal sinuses and mastoid air cells remain clear. The orbits and calvarium are unremarkable. The cerebellar tonsils are normal position. IMPRESSION: 1. No recent territorial infarct. ASPECT score of 10. 2. No intracranial hemorrhage or midline shift. 3. Mild generalized parenchymal volume loss with chronic microvascular ischemic changes. Please note that all CT scans at this facility use dose modulation, iterative reconstruction, and/or weight-based dosing when appropriate to reduce radiation dose to as low as reasonably achievable. Dictated by Naren Ferro MD @ 04/17/2024 4:25:15 PM (Electronically Signed)
--- NOTE | 2024-04-17 14:48 | CRLHL7_ITS ---
For Patients: As a result of the Century Cures Act, medical imaging exams and procedure reports are released immediately into your electronic medical record. You may view this report before your referring provider. If you have questions, please contact your health care provider. DATE: 04/17/2024 CLINICAL HISTORY: Patient with dizziness and imbalance. TECHNIQUE: Standard helical CT image acquisition of the neck up to the skull base after bolus intravenous contrast enhancement. 2D and 3D MIP images for post-processing were performed and interpreted on an independent workstation and 3D images were permanently archived. COMPARISON: CT same day. FINDINGS: The origins of the great vessels from the aortic arch are patent. The origin of the right vertebral artery is patent. The origin of the left vertebral artery is patent. The common carotid arteries are patent. There is a moderate (64%) stenosis at the origin of the right internal carotid artery by NASCET criteria. This is caused by calcified plaque with a 1.5mm residual lumen. There is no stenosis at the origin of the left internal carotid artery by NASCET criteria. The rest of the cervical segments of the internal carotid arteries are patent up to the skull base. The left vertebral artery is dominant. The cervical segments of the vertebral arteries are patent up to the skull base. The visualized lung apices are unremarkable. The thyroid gland is unremarkable. The soft tissues of the neck are unremarkable. There are degenerative changes in the cervical spine. IMPRESSION: Moderate (64%) stenosis at the origin of the right internal carotid artery by NASCET criteria. This is caused by calcified plaque with a 1.5mm residual lumen. Please note that all CT scans at this facility use dose modulation, iterative reconstruction, and/or weight-based dosing when appropriate to reduce radiation dose to as low as reasonably achievable. Dictated by Nithin Johnson MD @ 04/18/2024 7:56:02 AM (Electronically Signed)
--- NOTE | 2024-04-17 14:48 | CRLHL7_ITS ---
For Patients: As a result of the Century Cures Act, medical imaging exams and procedure reports are released immediately into your electronic medical record. You may view this report before your referring provider. If you have questions, please contact your health care provider. DATE: 04/17/2024 CLINICAL HISTORY: Patient with focal neurological deficits. TECHNIQUE: Standard helical CT image acquisition through the intracranial circulation following intravenous administration of contrast material with bolus tracking. 2D and 3D MIP images for post-processing were performed and interpreted on an independent workstation and 3D images were permanently archived. COMPARISON: CT same day. FINDINGS: There is no cerebral aneurysm or large vessel occlusion. The right internal carotid artery is normal. The right middle cerebral artery and its branches are normal. The right anterior cerebral artery and its branches are normal. The left internal carotid artery is normal. The left middle cerebral artery and its branches are normal. The left anterior cerebral artery and its branches are normal. The anterior communicating artery is well visualized and appears normal. The right vertebral artery and PICA are normal. The left vertebral artery and PICA are normal. The left vertebral artery is dominant. The basilar artery is patent and appears normal. The right posterior cerebral artery is normal. The left posterior cerebral artery is normal. The visualized venous structures are patent. IMPRESSION: Patent proximal intracranial vasculature without intracranial aneurysms. Please note that all CT scans at this facility use dose modulation, iterative reconstruction, and/or weight-based dosing when appropriate to reduce radiation dose to as low as reasonably achievable. Dictated by Nithin Johnson MD @ 04/18/2024 7:57:34 AM (Electronically Signed)
[2024-04-17 15:42] LABS: Albumin* 4.3 g/dL (3.3-5.0); Basophils Absolute Auto 0.03 K/uL (0.00-0.30); Basophils Percent Auto 0.5 % (0.0-3.0); Chloride* 103 mmol/L (96-114); Eosinophils Absolute Auto 0.22 K/uL (0.00-0.50); Hematocrit 43.1 % (33.0-51.0); Hemoglobin* 13.9 gm/dL (12.0-16.0); Immature Granulocytes Abs Auto 0.01 K/uL (0.00-0.30); Immature Granulocytes Pct Auto 0.2 %; Lymphocytes Percent Auto 31.1 % (20-44); Mean Corpuscular HGB Conc 32 gm/dL (32-36); Mean Corpuscular Hemoglobin 33 pg (26-34); Mean Corpuscular Volume 101 fL (80-100); Monocytes Percent Auto 8.4 % (0.0-11.0); Neutrophils Absolute Auto 3.04 K/uL (1.7-7.0); Neutrophils Percent Auto 55.8 % (42.0-72.0); Platelet Count* 190 K/uL (140-440); Potassium* 3.8 mmol/L (3.6-5.1); RDW Coefficient of Variation % 12.8 % (11.5-15.5); Red Blood Count 4.26 m/uL (4.00-5.20); Sodium* 136 mmol/L (135-149); White Blood Count* 5.46 K/uL (4.50-11.00)
[2024-04-17 15:43] LABS: INR 1.07 (0.91-1.10); Prothrombin Time 14.8 Seconds
[2024-04-17 15:44] LABS: Partial Thromboplastin Time* 25 Seconds (23-33)
[2024-04-17 15:45] LABS: Alanine Aminotransferase* 53 U/L (4-35); Alkaline Phosphatase* 71 U/L (40-150); Anion Gap 8 mEq/L (7-15); Aspartate Amino Transferase* 64 U/L (12-35); Bilirubin Total* 0.6 mg/dL (0.1-1.5); Blood Urea Nitrogen* 11 mg/dL (7-30); Calcium* 8.8 mg/dL (8.4-10.6); Carbon Dioxide* 25 mmol/L (20-32); Creatinine* 0.5 mg/dL (0.5-1.5); Est. Creatinine Clearance* 42.62; Estimated Glomerular Filt Rate 98 ml/min; Glucose* 115 mg/dL (60-115)
[2024-04-17 15:49] LABS: Slide Review Reflex No
--- NOTE | 2024-04-17 16:02 | CRLHL7_ITS ---
For Patients: As a result of the Cures Act, medical imaging exams and procedure reports are released immediately into your electronic medical record. You may view this report before your referring provider. If you have questions, please contact your health care provider. INDICATION: Dizziness. Gait imbalance. TECHNIQUE: Brain MRI without contrast. COMPARISON: None. FINDINGS: No evidence of acute ischemia. No evidence of acute or chronic intracranial blood products. Scattered FLAIR hyperintense foci within the supratentorial white matter and brainstem, typical for chronic microvascular ischemic change. Small chronic lacunar infarct within the right posterior putamen. Moderate generalized parenchymal volume loss. No mass effect or herniation. No hydrocephalus or extra-axial collections. The pituitary gland, parasellar structures and optic chiasm are normal. Small chronic infarct within the right posterior cerebellum. All the major intracranial vascular structures demonstrate normal flow-related signal. The orbital contents are normal. No calvarial or skull base marrow replacing process. No obstructive sinus disease. No extracranial soft tissue findings. IMPRESSION: 1. No acute infarction or other acute intracranial pathology. 2. Minimal chronic microvascular ischemic changes. Small chronic lacunar infarct within the right posterior putamen. Small chronic infarct right posterior cerebellum. Dictated by Wm Morillo MD @ 04/17/2024 5:35:05 PM (Electronically Signed)
--- OUTSIDE RECORDS SUMMARY | 2024-04-17 17:20 | XMS_ITS | Clinical Summary ---
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 Gender Identity Not on file Sexual Orientation Not on file Last Filed Vital Signs Vital Sign Reading Time Taken Comments Blood Pressure 148/87 12/21/2019 5:46 PM HEAD BUCKER Pulse 69 12/21/2019 5:46 PM HEAD BUCKER Temperature 37.1 C (98.7 F) 12/21/2019 2:15 PM HEAD BUCKER Respiratory Rate 18 12/21/2019 5:46 PM HEAD BUCKER Oxygen Saturation 95% 12/21/2019 5:46 PM HEAD BUCKER Inhaled Oxygen Concentration - - Weight 63.5 kg (140 lb) 04/02/2019 4:26 PM HEAD BUCKER Height 162.6 cm (5' 4) 04/02/2019 4:26 PM HEAD BUCKER Body Mass Index 24.03 04/02/2019 4:26 PM HEAD BUCKER Plan of Treatment Health Maintenance Due Date [...] - 144 mmol/L 11/17/2018 11:26 PM CDT [facility] Potassium 3.8 3.4 - 5.3 mmol/L 11/17/2018 11:26 PM T [facility] Chloride 109 94 - 109 mmol/L 11/17/2018 11:26 PM T [facility] Carbon Dioxide 20 20 - 32 mmol/L 11/17/2018 11:32 PM CDT [facility] Anion Gap 11 3 - 14 mmol/L [facility] Glucose 108(H) 70 - 99 mg/dL 11/17/2018 11:32 PM T [facility] Urea Nitrogen 21 7 - 30 mg/dL 11/17/2018 11:32 PM T [facility] Creatinine 0.55 0.52 - 1.04 mg/dL 11/17/2018 11:32 PM T [facility] GFR Estimate >90 >60 mL/min/{1. 73_m2} 11/17/2018 11:32 PM CDT [facility] Comment: Non GFR Calc Starting 01/23/2018, serum creatinine based estimated GFR (eGFR) will be calculated using the Chronic Kidney Disease Epidemiology Collaboration (CKD-EPI) equation. GFR Estimate If Black >90 >60 mL/min/{1. 73_m2} 11/17/2018 11:32 PM CDT [facility] Comment: GFR Calc Starting 01/23/2018, serum creatinine based estimated GFR (eGFR) will be calculated using the Chronic Kidney Disease Epidemiology Collaboration (CKD-EPI) equation. Calcium 9.0 8.5 - 10.1 mg/dL 11/17/2018 11:32 PM CDT [facility] Blood specimen (specimen) 11/17/2018 10:57 PM CDT 11/17/2018 11:04 PM CDT Donavan Gonzalez MD LAB - BLOOD ORDERABLES Final Result [facility] [address] [place] [address], [facility] [phone] [facility] [address] [place] [address], [facility] [phone] from Last 3 Months or Most Recently Relevant to Health Maintenance Insurance [facility] [employer] [facility] [place] [address] Care Teams Survey Technician Relationship Specialty Start Date End Date Shimon Xavier MD [facility] [address] [place] [address] PCP - General Family Medicine 12/21/19
--- OUTSIDE RECORDS SUMMARY | 2024-04-17 17:20 | XMS_ITS | Encounter Summary ---
Author Organization [facility] Address [address] [place] [address] Care Team Providers Care Printing Services Coordinator Name Role Phone Shimon Xavier MD Primary Care Provider [phone] Gonzalez Bills MD Unavailable [phone] Gonzalez Bills MD Unavailable [phone] Encounter Details Date Type Department Care Team (Late st Contact Info) Description 12/21/2019 Ophth Exam [facility] Services - Eye Care Service Line [address] [place] [phone] Jose Rand MD [address] [place] [address] [phone] Social History Tobacco Use Types Packs/Day Years Used Date Smoking Tobacco: Never Assessed Comments Unknown Sex and Gender Information Value Date Recorded Sex Assigned at Not on file 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 No / Unsure 12/21/2019 12:04 PM STAFF TRAINER documented as of this encounter Plan of Treatment Not on file documented as of this encounter Visit Diagnoses Not on filedocumented in this encounter Care Teams Printing Services Coordinator Relationship Specialty Start Date End Date Shimon Xavier MD [facility] [id number] [place] [address] PCP - General Family Medicine 12/21/19 Gonzalez Bills MD [address] [place] [address] Assigned PCP 06/11/20 01/21/22 Gonzalez Bills MD [address] [place] [address] Assigned PCP 04/02/22 12/30/22 documented as of this encounter
--- OUTSIDE RECORDS SUMMARY | 2024-04-17 17:20 | XMS_ITS | Data Portability ---
Author Organization [facility] [employer], [id number] Address [address] [place] [address] Assessment Encounter Date Assessment Date Assessment LastModified by Organization Details LastModified Time 04/04/2022 04/04/2022 Normal annual gynecologic examination, postmenopausal female. No acute JOINER HELPER issues at this time. Due for mammogram and bone density evaluation Not available 04/05/2022 16:05:26 04/12/2023 04/12/2023 Normal routine annual examination, postmenopausal patient. No acute gynecologic issues or concerns at this time Not available 04/12/2023 18:52:35 Plan of Treatment Reminders Order Date Submit Date Provider Last Modified By Organization Details Last Modified Time Details Appointments None record ed. Lab None record ed. Referral None record ed. Procedures None record ed. Surgeries None record ed. Imaging None record ed. Medication Orders None record ed. Patient TargetsNo targets recorded. Patient Instructions Encounter Date Encounter Id Patient Instructions Last Modified By Organization Details Last Modified Time 04/04/2022 [id number] Return in 1 year for annual examination. Schedule bilateral screening mammogram. Recommend bone density evaluation in the coming year for osteoporosis screening. Follow-up with [facility] for general medical needs. Not available 04/05/2022 16:05:58 I discussed with Mrs. Chávez her clinical presentation and findings on examination. She overall has no acute gynecologic issues or concerns. Her gynecologic care has been at the [facility] over the last several years. She was last in our office in 2010. She has no postmenopausal bleeding and we discussed routine screening tests including mammography which is due and bone density evaluation. The patient is up-to-date with colonoscopy and no longer requires cervical cytology. She is not sexually active and that her current partner has erectile dysfunction secondary to prostate surgery. All questions were answered to the patient's satisfaction she expressed understanding and agreement with the plan of care - Encouraged breast self-awareness and monthly breast exams. - Recommend mammogram annually starting at age 40. - Encouraged regular exercise. - Discussed calcium, vitamin D, and weight bearing exercise for bone health. - Discussed osteoporosis screening guidelines. - Recommend colonoscopy starting at age 45. - Encouraged patient to establish care with a PCP to manage non-JOINER HELPER concerns if she does not already have one. - Reviewed current cervical cancer screening guidelines. - Discussed concern with post-menopausal bleeding. Discussed common physical changes and central weight gain. We discussed when treatment is indicated for control of symptoms. Not available 04/05/2022 16:07:13 04/12/2023 [id number] Return to clinic in 1 year for annual examination. Recommend bone density evaluation sometime in the next year. Follow-up with dermatology for skin issues. Call for any concerns or issues including postmenopausal bleeding. We will check with the [facility] regarding the patient's bilateral mammogram that she had done within the last several months. Not available 04/12/2023 18:53:06 I discussed with Mrs. Chávez her clinical presentation and findings on examination. She is overall doing quite well. Although the results are not available in her [place] EMR, the patient reports that she had a mammogram within the last couple of months. She is due for a bone density evaluation and this will be scheduled. No further cervical cytology is necessary. Her breast examination is normal and she does have bilateral implants. All questions were answered the patient's satisfaction she expressed understanding and agreement with the plan of care - Encouraged breast self-awareness and monthly breast exams. - Recommend mammogram annually - Encouraged regular exercise. - Discussed calcium, vitamin D, and weight bearing exercise for bone health. - Discussed osteoporosis screening guidelines. - Recommend colonoscopy at recommended intervals - Encouraged patient to establish care with a PCP to manage non-JOINER HELPER concerns if she does not already have one. - Reviewed current cervical cancer screening guidelines. PAP smear recommendations after age 65 without a history of cervical cancer or severe dysplasia within the last 20 years discussed. - Discussed indications to call or return in the menopausal period including post menopausal bleeding Not available 04/12/2023 18:54:23 Reason for Referral None Reported. Results Created Date Observation Date Name Description Value Unit Range Abnormal Flag Note LastModifiedBy Organization Detail LastModifiedTime 04/13/19 24 11/03/2022 MAMMO , scree breanna, tomos ynthe sis, bilat eral No observ ation record ed. [email or web address] Not Available 2023 11:45:45 Result Notes Documentation Provider Name and Address Organization Details Recorded Time Mammo, Screening, Tomosynthesis, Bilateral : Mammogram Screening Mammogram Type: 3D Bilateral Radiological Classification: Bi-Rads 2 - Benign Findings ACR Category: c-Heterogeneously dense, may obscure small masses Followup planned: Screening mammogram one year Tio Bray null, [facility]N 04/13/2023 11:45:45 Problems Name Problem SNOMED Code Status Onset Date Resolution Date Notes Provider Name and Address Organization Details Recorded Time Cyst of ovary 80378903 Active [address] (TERMED) null, [facility] 3 17:10:16 Insertion of prosthesis for breast Active [address] (TERMED) null, [facility] [employer] 3 17:10:31 Hypertensive disorder 98282732 Active [address] (TERMED) null, [facility] [employer] 3 17:10:42 Depressive disorder 75250099 Active [address] (TERMED) null, [facility] 3 17:10:56 Problem Notes None recorded. Procedures Surgical History Date Name Laterality Status Provider Name and Address Organization Details Recorded Time 11/04/19 23 Date of Last Mammogram completed Tio Bray [facility] [employer] 04/13/2023 11:45:06 02/06/19 21 Date of Last Colonoscopy completed [address] (TERMED) [facility] 04/04/2022 17:11:[address] (TERMED) [facility] 04/04/2022 17:11:49 insertion of prosthesis for breast completed [address] (TERMED) [facility] [employer] 04/04/2022 17:12:37 Imaging Results Imaging Date Name Status LastModified by Organiz ation Details LastModified Time 11/03/2022 MAMMO, screening, tomosynthesis, bilateral completed [email or web address] Information not available 04/13/2023 11:45:45 Procedure Notes None recorded. Medical Equipment None Reported. Allergies No known drug allergies Medications Name Sig Start Date Stop Date Status Note LastModified by Organization Details LastModified Time metoprolol succinate ER 50 mg tablet,extend ed release 24 hr TAKE 1 TABLET (50 MG) BY MOUTH ONCE DAILY. active Not Available Not Available No t Available sertraline 100 mg tablet TAKE 1 TABLET (100 MG) BY MOUTH ONCE DAILY. active Not Available Not Available No t Available pramipexole 0.5 mg tablet TAKE 1 TABLET (0.5 MG) BY MOUTH AT BEDTIME. active Not Available Not Available No t Available doxycycline monohydrate 50 mg capsule TAKE 1 CAPSULE BY MOUTH ONCE A DAY NEEDED active Not Available Not Available No t Available metronidazole 0.75 % topical cream APPLY CREAM TOPICALLY TO FACE 1-2 TIMES DAILY active Not Available Not Available No t Available doxycycline hyclate 100 mg tablet TAKE 1 TABLET BY MOUTH TWICE DAILY FOR 7 DAYS active Not Available Not Available No t Available Restasis 0.05 % eye drops in a dropperette INSTILL 1 DROP INTO EACH EYE TWICE DAILY active Not Available Not Available No t Available rosuvastatin 20 mg tablet TAKE 1 TABLET (20 MG) BY MOUTH AT BEDTIME. active Not Available Not Available No t Available Vitals Date Recorded Body weight Body mass index (BMI) Body height Systolic blood pressure Diastolic blood pressure Provider Name and Address Organization Details Last Updated DateTime 04/04/2022 30474.86 g 25.7 kg/m2 162.56 cm 130 mm[Hg] 80 mm[Hg] Zena Fernandez (TERMED) [facility] [employer] 3 17:16:30 Date Recorded Body weight Body mass index (BMI) Body height Systolic blood pressure Diastolic blood pressure Provider Name and Address Organization Details Last Updated DateTime 04/12/2023 20447.32 g 26.1 kg/m2 162.56 cm 128 mm[Hg] 84 mm[Hg] Lisa Frias [facility] [employer] 4 14:36:53 Social History Question Answer Notes LastModified by Organizat ion Details LastModified Time What Is Your Relationship Status? Information not available 04/04/2022 Sex: Unknown Functional Status None recorded. Mental Status None recorded. Family History Relationship Description Onset Age of this Age Resolved Age Notes LastModified by Organization Details LastModified Time Brother Diabetes mellitus [email or web address] Not available 2022 17:12:53 Father Acute stroke Not avail able 04/04/2022 17:13:07 Medical History No medical history recorded. Gynecological History Statement/Question Response Date of Last Pap Smear Date of Last Mammogram 11/03/2022 Date of Last Colonoscopy 02/07/2020 Obstetrics History GPAL:G 3 P 2 0 1 2 Type Value Multiple Births 0 Full Term 2 Induced 0 Spontaneous 1 Premature 0 Living 2 Ectopics 0 Total 3 Immunizations Vaccine Type Date Status Note Provider Nam e and Address Organization Details Recorded Time Influenza, adjuvanted, trivalent, PF 7 completed Lisa Manati null, [place] [facility] [employer] 04/12/2023 14:34:38 Influenza, adjuvanted, quadrivalent, PF 0 completed Lisa Manati null, [place] [facility] [employer] [employer] [facility] 04/12/2023 14:34:38 Influenza, adjuvanted, quadrivalent, PF 2 completed Lisa Rodriguez null, [place] [facility] [employer] [employer] 04/12/2023 14:34:38 Influenza, adjuvanted, quadrivalent, PF 1 completed Lisa Manati null, [place] [facility] [employer] 04/12/2023 14:34:38 COVID-19, mRNA, LNP-S, PF, 100 mcg/0.5mL dose or 50 mcg/0.25mL dose 1 completed Lisa Manati null, [place] [facility] [employer] 04/12/2023 14:34:38 COVID-19, mRNA, LNP-S, PF, 100 mcg/0.5mL dose or 50 mcg/0.25mL dose 1 completed Lisa Rodriguez null, [place] [facility] [employer] 04/12/2023 14:34:38 COVID-19, mRNA, LNP-S, PF, 100 mcg/0.5mL dose or 50 mcg/0.25mL dose 1 completed Lisa Rodriguez null, [place] [facility] [employer] 04/12/2023 14:34:38 pneumococcal polysaccharide PPV23 0 completed Lisa Rodriguez null, [place] [facility] [employer] 04/12/2023 14:34:38 Tdap 8 completed Lisa Manati null, [place] [facility] [employer] [employer] 04/12/2023 14:34:38 Tdap 9 completed Lisa Manati null, [place] [facility] [employer] 04/12/2023 14:34:38 Pneumococcal conjugate PCV 13 9 completed Lisa Manati null, [place] [facility] [employer] [employer] 04/12/2023 14:34:38 Influenza, high-dose, trivalent, PF 6 completed Lisa Rodriguez null, [place] [facility] [employer] 04/12/2023 14:34:38 Influenza, high-dose, trivalent, PF 5 completed Lisa Manati null, [place] [facility] [employer] 04/12/2023 14:34:38 Influenza, split virus, trivalent, preservative 9 completed Lisa Rodriguez null, [place] [facility] [employer] 04/12/2023 14:34:38 Influenza, split virus, trivalent, preservative 6 completed Lisa Manati null, [place] [facility] [employer] 04/12/2023 14:34:38 Influenza, split virus, trivalent, PF 9 completed Lisa Rodriguez null, [place] [facility] [employer] [employer] 04/12/2023 14:34:38 Past Encounters Encounter ID Performer Location Encounter Start Date Encounter Closed Date Diagnosis/Indication Diagnosis SNOMED-CT Code Diagnosis ICD10 Code Diagnosis Note [id number] MIHAELA KNOX MD [id number] [facility]_[address] ,[address] [place] [id number] 04/04/2022 16:36:48 04/06/2022 15:16:06 Screening for malignant neoplasm of breast 718217653 Z12.39 Gynecologi c examination 31833258 Z01.458 [id number] MIHAELA KNOX MD [id number] [facility] [facility] [place] [address] 04/12/2023 14:24:30 04/13/2023 11:04:20 Gynecologic examination 50664243 Z01.419 Menopause 074607597 N95. 1 Health Concerns Section Related Observation LastModified by Organization Detai ls LastModified Time None Recorded Concern Status LastModified by Organization Details LastModified Time None Recorded Advance Directives Directive None Recorded Payers Encounter Date Sequence Insurance Name Policy Number Policy Correia Covered Member ID Correia Member ID Guarantor Name 04/04/2022 1 [place] [id number] Liudmila Chávez [id number] Liudmila Chávez 04/12/2023 1 [place] [id number] Liudmila Chávez [id number] Liudmila I Kyler Notes Date Note Type Note Provider Name and Address Organization Details Recorded Time 04/04/2022 text/html Mrs. Chávez returns to our office after a 12-year absence. She has had much of her gynecologic care at the [facility]. In 2014 she did have postmenopausal bleeding which was evaluated with an ultrasound and endometrial biopsy. There was no evidence of malignancy and her postmenopausal bleeding resolved. She now is doing well and has no specific gynecologic issues or concerns. Her current male partner has had prostate surgery and subsequent erectile dysfunction. She is seen at the [facility] in [place] for general medical needs. She also follows up with dermatology for skin care and a history of basal cell skin cancers. She no longer requires cervical cytology but is due for a mammogram and bone density evaluation. Her colonoscopy is up-[place] [id number] [facility],[address], [place], [phone], [facility] [employer] 04/05/2022 16:08:35 04/12/2023 text/html Mrs. Chávez presents to our office today for her annual gynecologic examination. She voices no specific issues or concerns at this time. Specifically, no postmenopausal bleeding no breast abnormalities no issues with bowel or bladder function. She has seen dermatology for basal cell carcinoma of the face as well as rosacea for which she is on doxycycline. Patient reports that she did have a bilateral screening mammogram at the [facility] in 2022 but she has not yet had a bone density evaluation. She no longer needs cervical [place]ology[place] [id number] [facility],[address], [place], [address], [place] [facility] [employer] 04/12/2023 18:54:51 OBGyn Episode No OBEpisode recorded.
[2024-04-17] MEDS: ASPIRIN EC 325 MG TABLET PO (18:39)
--- NOTE | 2024-04-17 22:16 | P.IMHP_ITS ---
Hospitalist- H&P: HPI History of Present Illness Date Seen: 04/17/24 Chief complaint: Dizzyness Narrative: Liudmila Chávez is a 73 year old female past medical history significant for hypertension, anxiety, insomnia, restless legs syndrome, alopecia, vitamin-D deficiency is admitted to the medical floor from the ED for further stroke workup. Patient is seen with daughter, Roxanne, at bedside. Patient reports onset of mild dizziness Monday. She told the nurse today. She describes the dizziness as occurring when she starts moving from standing and feeling off balance. Denies any room spinning. Denies symptoms at rest, while sitting down or lying down. Reports dizziness worsened yesterday and persisted into today. Gait instability noted today. She had someone in a store assist her to her car and then proceeded to drive to the clinic cross the street. Upon admission to the medical floor, symptoms have improved slightly but have not yet resolved. Denies recent headaches. No change in vision or hearing. No pressure behind her eyes. Denies nasal congestion, postnasal drainage, sore throat. No recent URI symptoms. Denies recent fevers or chills. Denies chest pain or shortness of breath. No cough. Denies palpitations, pressure in her chest or neck. Denies recent nausea, vomiting, diarrhea. No change in urination. In the ED, chronic lacunar infarcts were noted on MRI. No acute infarcts noted however concern for right vertebral artery dissection was noted. This was discussed with tele neurology, recommending MRA brain/neck with dissection protocol with fat saturation. Confirm this study is not available at this facility. ED provider discussed with Neurology, recommending continuing with local hospitalization in stroke workup. Received aspirin 325 mg in the ED. PCP is Nadira Sarah. Nonsmoker. Per recent PCP records (03/2024), drinks 4 glasses of wine nightly. She currently is denying this. Wishes to be full code. Review of Systems Narrative: REVIEW OF SYSTEMS: Complete review of systems performed and negative unless otherwise stated in HPI or below. [facility] Medical History History of stroke ?Z86.73 - Personal history of transient ischemic attack (TIA), and cerebral infarction without residual deficits (ICD-10) Excessive drinking alcohol ?F10.10 - Alcohol abuse, uncomplicated (ICD-10) CKD (chronic kidney disease) ?N18.9 - Chronic kidney disease, unspecified (ICD-10) Restless leg syndrome ?G25.81 - Restless legs syndrome (ICD-10) Mild cognitive impairment ?G31.84 - Mild cognitive impairment of uncertain or unknown etiology (ICD-10) Insomnia ?G47.00 - Insomnia, unspecified (ICD-10) Anxiety ?F41.9 - Anxiety disorder, unspecified (ICD-10) Ocular rosacea ?L71.8 - Other rosacea (ICD-10) Vitamin D deficiency ?E55.9 - Vitamin D deficiency, unspecified (ICD-10) Alopecia ?L65.9 - Nonscarring hair loss, unspecified (ICD-10) Hypertension ?I10 - Essential (primary) hypertension (ICD-10) Social History What is your current living situation?: I presently have a place to live Problems where you live: no known problems Problems where you live details: none In the past 12 months, utilities in danger of being shut off: no In past 12 months, lack of transportation kept you from medical appts, meetings, work, or getting things needed for daily living: no In the past 12 mos, have been you worried that your food would run out before you had money to buy more?: never true In the past 12 mos, the food you bought just didn't last and you didn't have money to buy more?: never true Smoking Status: Never smoker How often do you have a drink containing alcohol: 2-3 times a week Alcohol type: wine How many standard drinks containing alcohol do you have on a typical day: 1 or 2 How often do you have six or more drinks on one occasion: Never AUDIT-C Alcohol total score: 3 Non-prescribed substance use: denies use Caffeine: Yes (1 cup coffee) How often does anyone, including family, friends and others, physically hurt you : never How often does anyone, including family, friends and others, insult or talk down to you: never How often does anyone, including family, friends and others, threaten you with harm: never How often does anyone, including family, friends and others, scream or curse at you: never service: No Meds Home Medications and Allergies Home Medications ?Medication ?Instructions ?Recorded ?Confirmed ?Type cyclosporine 0.05 % eye drops in a drp ophthalmic (eye) 07/22/22 07/22/22 History dropperette (Restasis) doxycycline monohydrate 50 mg 50 mg PO DAILY 07/22/22 04/17/24 History capsule metoprolol succinate 50 mg 50 mg PO DAILY 07/22/22 04/17/24 History tablet,extended release 24 hr metronidazole 0.75 % topical cream 1 applic topical BID 07/22/22 04/17/24 History pramipexole 0.5 mg tablet 0.5 mg PO QPM 07/22/22 04/17/24 History rosuvastatin 20 mg tablet 20 mg PO QPM 07/22/22 04/17/24 History sertraline 100 mg tablet 100 mg PO DAILY 07/22/22 04/17/24 History gabapentin 100 mg capsule 100 mg PO QPM 04/17/24 04/17/24 History Allergies Allergy/AdvReac Type Severity Reaction Status Date / Time No Known Drug Allergies Allergy Verified 04/17/24 16:21 Exam Narrative: Exam Narrative: PHYSICAL EXAM General: Pleasant, conversant, NAD HEENT: Normocephalic, atraumatic, sclera white, EOMI, oral mucosa moist Cardiovascular: RRR, S1S2. No pitting edema Pulmonary: CTA bilaterally without rhonchi, rales, expiratory wheezes. No dyspnea Abdominal: Soft, nondistended, NTTP Neurological: Alert, answering questions appropriately, cranial nerves intact, no focal findings currently Extremities: No gross joint deformity or swelling. AROMI. Neurovascularly intact Skin: Warm, dry. Const: Vital Signs, click to edit/add: Vital Signs - 24 hr 04/17/24 14:25 04/17/24 15:31 04/17/24 15:33 Temperature 98.5 F Pulse Rate 72 Pulse Rate [Pulse Oximeter] 77 Respiratory Rate 16 18 Blood Pressure 140/75 H Blood Pressure [Le ft Arm] Blood Pressure [Ri ght Upper Arm] 157/79 H Pulse Oximetry 94 95 95 Oxygen Delivery Me thod Room Air 04/17/24 15:45 04/17/24 17:04 04/17/24 17:05 Temperature Pulse Rate 76 Pulse Rate [Pulse Oximeter] Respiratory Rate 11 L 16 20 Blood Pressure 153/105 H Blood Pressure [Le ft Arm] Blood Pressure [Ri ght Upper Arm] Pulse Oximetry 97 Oxygen Delivery Me thod 04/17/24 17:15 04/17/24 17:30 04/17/24 17:45 Temperature Pulse Rate 80 80 79 Pulse Rate [Pulse Oximeter] Respiratory Rate 14 Blood Pressure Blood Pressure [Le ft Arm] Blood Pressure [Ri ght Upper Arm] Pulse Oximetry 97 95 96 Oxygen Delivery Me thod 04/17/24 18:00 04/17/24 18:15 04/17/24 18:20 Temperature Pulse Rate 77 75 77 Pulse Rate [Pulse Oximeter] Respiratory Rate 15 13 10 L Blood Pressure 146/88 H Blood Pressure [Le ft Arm] Blood Pressure [Ri ght Upper Arm] Pulse Oximetry 97 97 96 Oxygen Delivery Me thod 04/17/24 18:21 04/17/24 18:30 04/17/24 18:45 Temperature Pulse Rate 78 75 79 Pulse Rate [Pulse Oximeter] Respiratory Rate 20 16 22 Blood Pressure Blood Pressure [Le ft Arm] Blood Pressure [Ri ght Upper Arm] Pulse Oximetry 96 97 97 Oxygen Delivery Me thod 04/17/24 19:00 04/17/24 20:00 04/17/24 20:15 Temperature Pulse Rate 77 71 69 Pulse Rate [Pulse Oximeter] Respiratory Rate 13 22 20 Blood Pressure Blood Pressure [Le ft Arm] Blood Pressure [Ri ght Upper Arm] Pulse Oximetry 96 94 96 Oxygen Delivery Me thod 04/17/24 20:30 04/17/24 20:41 04/17/24 20:45 Temperature Pulse Rate 74 72 72 Pulse Rate [Pulse Oximeter] Respiratory Rate 18 16 Blood Pressure 159/81 H Blood Pressure [Le ft Arm] Blood Pressure [Ri ght Upper Arm] Pulse Oximetry 93 95 95 Oxygen Delivery Me thod 04/17/24 20:59 Temperature 99.0 F Pulse Rate Pulse Rate [Pulse Oximeter] 75 Respiratory Rate 18 Blood Pressure Blood Pressure [Le ft Arm] 176/99 H Blood Pressure [Ri ght Upper Arm] Pulse Oximetry 94 Oxygen Delivery Me thod Room Air Hospitalist - H&P: Result Labs Labs: Short CBC 04/17/24 Range/Units 15:18 WBC 5.46 (4.50-11.00) K/uL Hgb 13.9 (12.0-16.0) gm/dL Hct 43.1 (33.0-51.0) % Plt Count 190 (140-440) K/uL BMP 04/17/24 15:18 Sodium 136 Potassium 3.8 Chloride 103 Carbon Dioxide 25 BUN 11 Creatinine 0.5 Glucose 115 Calcium 8.8 Liver Function 04/17/24 Range/Units 15:18 Total Bilirubin 0.6 (0.1-1.5) mg/dL AST 64 H (12-35) U/L ALT 53 H (4-35) U/L Alkaline Phosphatase 71 (40-150) U/L Albumin 4.3 (3.3-5.0) g/dL ECG Attestation: I personally reviewed and interpreted this ECG as follows: ECG interpretation date: 04/17/24 Interpretation: NSR, rate 72, QTC [address] scan - head: Attestation: I have reviewed the pertinent imaging results. Radiologist's impression: No loss of suggs-white differentiation to suggest recent territorial infarct. The insular cortex is preserved. No hyperdense MCA sign. ASPECT score of 10. No intracranial hemorrhage, abnormal extra-axial fluid collection, hydrocephalus or midline shift. The ventricles and cerebral sulci are prominent in caliber, compatible with mild generalized parenchymal volume loss. There is ill-defined hypoattenuation of the supratentorial white matter diffusely, nonspecific but consistent with chronic microvascular ischemic changes the basal cisterns are patent. The paranasal sinuses and mastoid air cells remain clear. The orbits and calvarium are unremarkable. The cerebellar tonsils are normal position. IMPRESSION: 1. No recent territorial infarct. ASPECT score of 10. 2. No intracranial hemorrhage or midline shift. 3. Mild generalized parenchymal volume loss with chronic microvascular ischemic changes. MR Brain: Attestation: I have reviewed the pertinent imaging results. Radiologist's impression: No evidence of acute ischemia. No evidence of acute or chronic intracranial blood products. Scattered FLAIR hyperintense foci within the supratentorial white matter and brainstem, typical for chronic microvascular ischemic change. Small chronic lacunar infarct within the right posterior putamen. Moderate generalized parenchymal volume loss. No mass effect or herniation. No hydrocephalus or extra-axial collections. The pituitary gland, parasellar structures and optic chiasm are normal. Small chronic infarct within the right posterior cerebellum. All the major intracranial vascular structures demonstrate normal flow-related signal. The orbital contents are normal. No calvarial or skull base marrow replacing process. No obstructive sinus disease. No extracranial soft tissue findings. IMPRESSION: 1. No acute infarction or other acute intracranial pathology. 2. Minimal chronic microvascular ischemic changes. Small chronic lacunar infarct within the right posterior putamen. Small chronic infarct right posterior cerebellum. CTA head/neck: Attestation: I have reviewed the pertinent imaging results. Radiologist's impression: PRELIMINARY FINDINGS: The aortic arch has a conventional anatomy. The great vessels remain patent. The common carotid arteries remain patent. Mild atherosclerotic calcifications of the carotid bifurcations bilaterally. The cervical ICA segments remain patent bilaterally. The origins of the common carotid arteries remain patent. Left vertebral dominant system. The cervical vertebral arteries remain patent. The origins of the vertebral arteries remain patent. The visualized thyroid is unremarkable. The visualized lung borjas are clear. PRELIMINARY IMPRESSION: No hemodynamically significant stenoses of the cervical arterial vasculature. PRELIMINARY FINDINGS: The intracranial ICA segments remain patent. There are mild atherosclerotic calcifications of the cavernous and supraclinoid ICA segments bilaterally. The MCAs remain normal in course and caliber and are patent bilaterally. The bilateral ACAs remain patent. There is tapering of the intradural segment of the right vertebral artery, raising the possibility of a vertebral artery dissection. The left vertebral artery appears within normal limits. The basilar artery is unremarkable. The visualized cerebellar arteries are unremarkable. The large engine assembler are normal in course and caliber and remain patent. No cerebral aneurysms or large vessel occlusions. PRELIMINARY IMPRESSION: 1. Severe tapering of the intradural segment of the right vertebral artery raises the possibility of a vertebral artery dissection. 2. No large vessel occlusion identified. Assessment and Plan Assessment and plan (1) Dizziness: Problem comment: -onset Monday04/15/24, worsened yesterday, unchanged today. Gait instability noted. Feeling better on admission to the floor but not yet resolved -h/o vertigo, saw PT approx 6 years ago. Reports sxs past 3 days not similar to vertigo in past -no recent viral infection, current cold/URI complaints -concern for cerebellar stroke -MRI brain shows no acute infarction or other acute intracranial pathology. Minimal chronic microvascular ischemic changes. Small chronic lacunar infarct within the right posterior putamen. Small chronic infarct right posterior cerebellum -CTA head/neck shows no large vessel occlusion. Severe tapering of the intradural segment of the right vertebral artery raises possibility of a vertebral artery dissection -ED provider discussed with Neurology, Dr. Moss. Initially recommending MRA brain/neck with dissection protocol with fat saturation. Confirmed with radiology that we do not have that available at this facility. Neurology recommended that she remain locally for observation with MRA brain/neck - aware of inability to complete recommended dissection protocol. -MRA brain/neck -echocardiogram -telemetry -neurochecks and vital signs -bedside swallow eval -PT/OT/[employer] -A1c, lipids, TSH ordered -aspirin 325 mg in the ED, continue 81 mg daily -blood pressure control -tele neurology follow-up after completing studies Status: Acute (2) Hypertension: Problem comment: -continue metoprolol. BP during physical in March was 118/64 -strict blood pressure control in setting of possible vertebral artery dissection Status: Acute (3) Mild cognitive impairment: Problem comment: -slums March -PCP has referred to adult neuropsychology 03/2024 for neuropsychometric testing -OT for [place] Status: Acute (4) Restless leg syndrome: Problem comment: -may be exacerbated by untreated sleep apnea, alcohol consumption, her sertraline and lack of exercise -PCP instructed her to discontinue Mirapex and start gabapentin, abstain from alcohol consumption, exercise daily Status: Acute (5) CKD (chronic kidney disease): Problem comment: -noted in EMR. Baseline creatinine 0.62-0.77, GFR >90 Status: Acute (6) Excessive drinking alcohol: Problem comment: -PCP note from March 2024 documents 4 glasses of wine nightly. Patient currently denying this -[facility] protocol -AST/ALT 64/53, recheck in a.m. Status: Acute (7) History of stroke: Problem comment: -chronic lacunar infarcts noted on MRI -has h/o dizziness (r/t chronic cerebellum infarct?). Recent episode of inability to recognize her daughter while looking at her - agnosia Status: Acute Total Time Spent Total Time Spent: Today I spent 75 minutes seeing the patient, discussing the patient with ER staff, reviewing Expanse and Epic notes/diagnostics, discussing the care plan with our team that includes social work, PT/OT, pharmacy, RT, chcf and documenting my impressions and plan in the medical record.
[2024-04-17] MEDS: GABAPENTIN 100 MG CAPSULE PO (22:47)
[2024-04-17] MEDS: PRAMIPEXOLE 0.5 MG TABLET PO (22:47)
[2024-04-18] VITALS (8 sets, daily range): BP systolic 108–149; BP diastolic 60–84; PULSE 65–79; RESP 16; TEMP 36.4–37.2; O2SAT 93–95
--- NOTE | 2024-04-18 | CRLHL7_ITS ---
For Patients: As a result of the Century Cures Act, medical imaging exams and procedure reports are released immediately into your electronic medical record. You may view this report before your referring provider. If you have questions, please contact your health care provider. Indication: Possible vertebral dissection seen on CT Technique: Thin cut T1 sagittal and axial postcontrast MR images of the brain were obtained after administration of intravenous gadolinium. 20 cc Dotarem Comparison: MRI brain without contrast April 17, 2024 Findings: Exam is mildly motion limited. On midline sagittal images there are preserved flow voids within the sagittal sinuses. There is no evidence of abnormal contrast enhancement. There is global cortical atrophy with sulcal widening and ex vacuo dilatation of the lateral ventricles. Impression: No evidence of abnormal contrast enhancement or acute intracranial abnormality. Dictated by Sean Naik MD @ 04/18/2024 8:14:46 AM (Electronically Signed)
--- NOTE | 2024-04-18 05:34 | PC.NURSE ---
Pt slept well between neuro assessments, no new neuro deficits, mild dizziness but states overall improvement of symptoms. equal strength and movement bilaterally to all extremities. no vision changes, denies headache, N/V. ambulating with SBA, tolerating well, stable gate.
[2024-04-18 06:56] LABS: Hematocrit 41.5 % (33.0-51.0); Hemoglobin* 13.7 gm/dL (12.0-16.0); Mean Corpuscular HGB Conc 33 gm/dL (32-36); Mean Corpuscular Hemoglobin 33 pg (26-34); Mean Corpuscular Volume 100 fL (80-100); Platelet Count* 189 K/uL (140-440); Red Blood Count 4.15 m/uL (4.00-5.20); White Blood Count* 4.94 K/uL (4.50-11.00)
[2024-04-18 06:58] LABS: Albumin* 3.9 g/dL (3.3-5.0); Chloride* 106 mmol/L (96-114)
[2024-04-18 06:59] LABS: Potassium* 3.4 mmol/L (3.6-5.1); Sodium* 137 mmol/L (135-149)
--- NOTE | 2024-04-18 07:00 | CRLHL7_ITS ---
For Patients: As a result of the Century Cures Act, medical imaging exams and procedure reports are released immediately into your electronic medical record. You may view this report before your referring provider. If you have questions, please contact your health care provider. Indication: Possible vertebral artery dissection seen on CTA Technique: 3-D [id number] and phase contrast images of the cervical vasculature were obtained before and after the administration of intravenous gadolinium. Maximum intensity projections and 3-D reconstructions were performed. Carotid arteries are evaluated according to the NASCET criteria. 20 cc Dotarem Comparison: CTA neck April 17, 2024. Findings: The thoracic aorta demonstrates a normal supra arch branching pattern. The common carotid arteries are grossly patent without significant atherosclerotic narrowing. The right internal carotid artery is grossly patent without significant atherosclerotic narrowing. The left internal carotid artery is grossly patent without significant atherosclerotic narrowing. The vertebral arteries are stable prior exam with dominant left and hypoplastic right vertebral arteries. Impression: No evidence of high-grade narrowing of the carotid arteries according to the NASCET criteria. No evidence of vertebral artery dissection. Dictated by Sean Naik MD @ 04/18/2024 8:26:19 AM (Electronically Signed)
--- NOTE | 2024-04-18 07:00 | CRLHL7_ITS ---
For Patients: As a result of the Century Cures Act, medical imaging exams and procedure reports are released immediately into your electronic medical record. You may view this report before your referring provider. If you have questions, please contact your health care provider. Indication: Possible vertebral artery dissection Technique: 3-D [id number] MRA images of the [place] were obtained without the administration of intravenous gadolinium. Maximum intensity projections and 3-D reconstructions were performed. Comparison: CTA head and neck april 17, 2024 Findings: There are preserved flow voids within the skull base carotid arteries. The anterior cerebral arteries are patent without significant atherosclerotic disease or aneurysm. The middle cerebral arteries are patent without significant atherosclerotic disease or aneurysm. The posterior cerebral arteries are patent without significant atherosclerotic disease or aneurysm. There is a dominant left and hypo plastic right vertebral artery. The basilar artery is patent with demonstration of likely a small infundibulum arising from the origin of the left superior cerebellar artery. Impression: No evidence of significant atherosclerotic narrowing, aneurysm, or vascular malformation. Dictated by Sean Naik MD @ 04/18/2024 8:21:48 AM (Electronically Signed)
[2024-04-18 07:01] LABS: Alkaline Phosphatase* 63 U/L (40-150); Anion Gap 8 mEq/L (7-15); Aspartate Amino Transferase* 57 U/L (12-35); Bilirubin Direct* 0.3 mg/dL (0.0-0.5); Bilirubin Total* 0.8 mg/dL (0.1-1.5); Blood Urea Nitrogen* 10 mg/dL (7-30); Calcium* 8.6 mg/dL (8.4-10.6); Carbon Dioxide* 23 mmol/L (20-32); Cholesterol* 191 mg/dL (90-199); Creatinine* 0.5 mg/dL (0.5-1.5); Est. Creatinine Clearance* 42.62; Estimated Glomerular Filt Rate 98 ml/min; Glucose* 108 mg/dL (60-115); Slide Review Reflex No; Total Protein* 6.4 g/dL (6.0-8.3); Triglycerides* 126 mg/dL (40-149)
[2024-04-18 07:02] LABS: Alanine Aminotransferase* 46 U/L (4-35); HDL Cholesterol* 54 mg/dL (>=50); LDL Cholesterol Calculated 112 mg/dL (<100)
[2024-04-18 07:28] LABS: Hemoglobin A1C* 5.8 % (0-5.6)
[2024-04-18] MEDS: ASPIRIN 81 MG TABLET EC PO (09:09)
[2024-04-18] MEDS: SERTRALINE 100 MG TABLET PO (09:09)
[2024-04-18] MEDS: METOPROLOL SUCCINATE (XL) 50 MG TAB PO (09:10)
[2024-04-18] MEDS: SODIUM CHLORIDE 0.9 % (FLUSH) 10 ML SYRINGE 5 ML IVF (09:10)
--- NOTE | 2024-04-18 13:37 | PM.DS1 ---
DS: Providers Provider Date Seen: 04/18/24 Date of admission: 04/17/24 22:13 Primary care physician: Shimon Xavier MD Admitting Clinician: Vicenta Ruelas MD Consults: OT, PT Attending Physician on discharge: Zhanna Blackburn MD Date of Discharge: 04/18/24 DS: Diagnosis Discharge Diagnosis (1) Dizziness: Status: Acute Problem details: -onset Monday04/15/24 + gait instability -h/o vertigo, current symptoms different -no recent viral infection, current cold/URI complaints -MRI brain in ER reassuring, CTA head/neck had abnormalities concerning for possible vertebral artery dissection -MRA head/neck 04/18 reassuring -reassuring TTE -LDL 112, A1C 5.8 -stroke neurology consulted by phone during stay -dizziness resolved during stay, no needs identified by PT/OT (2) Hypertension: Status: Acute Problem details: -continue metoprolol. BP during physical in March was 118/64 (3) Mild cognitive impairment: Status: Acute Problem details: -slums March -PCP has referred to adult neuropsychology 03/2024 for neuropsych testing -daughter lives close and is very involved (4) Restless leg syndrome: Status: Acute Problem details: -may be exacerbated by untreated sleep apnea, alcohol consumption, her sertraline and lack of exercise -PCP had previously instructed her to discontinue Mirapex and start gabapentin, abstain from alcohol consumption, exercise daily (5) CKD (chronic kidney disease): Status: Acute Problem details: -noted in EMR. Baseline creatinine 0.62-0.77, GFR >90 (6) Excessive drinking alcohol: Status: Acute Problem details: -PCP note from March 2024 documents 4 glasses of wine nightly. Patient currently denying this -CIWAs negative during stay -elevated AST/ALT, baseline (7) History of stroke: Status: Acute Problem details: -chronic lacunar infarcts noted on MRI -has h/o dizziness and recent episode of inability to recognize her daughter while looking at her - agnosia DS: Summary Hospital Course Hospital Course: Liudmila was admitted to the hospital for CVA r/o in the setting of dizziness. Symptoms resolved during stay, MRI of brain reassuring with possible abnormality noted in the region of vertebral artery. MRA obtained with no evidence of dissection. TTE reassuring. Seen by PT and OT, no needs identified. Comorbidities noted above with details. Symptoms resolved and patient requesting discharge home with close PCP f/u on 04/18/2024. Daughter updated at bedside, happy with plan. Status at Discharge Functional status at discharge: independent ambulation Overall status at discharge: patient is back to baseline Time Spent with Patient Time attestation: Total time spent providing and/or coordinating discharge services: Time spent: Greater than 30 minutes Exam Narrative: Exam Narrative: GEN: Alert HEENT: EOMIs bilaterally, no scleral icterus CV: RRR, No concerning murmurs, rubs, or gallops R: LCTA bilaterally without concerning wheezing Ext: wwp, no concerning edema Skin: No concerning skin lesions or rashes on exposed skin Neuro: No focal deficits, no pronator drift, no resting tremor Psych: Appropriate Const: Vital Signs, click to edit/add: Vital Signs - 24 hr 04/17/24 14:25 04/17/24 15:31 04/17/24 15:33 Temperature 98.5 F Pulse Rate 72 Pulse Rate [Pulse Oximeter] 77 Respiratory Rate 16 18 Blood Pressure 140/75 H Blood Pressure [Le ft Arm] Blood Pressure [Ri ght Upper Arm] 157/79 H Pulse Oximetry 94 95 95 Oxygen Delivery Me thod Room Air 04/17/24 15:45 04/17/24 17:04 04/17/24 17:05 Temperature Pulse Rate 76 Pulse Rate [Pulse Oximeter] Respiratory Rate 11 L 16 20 Blood Pressure 153/105 H Blood Pressure [Le ft Arm] Blood Pressure [Ri ght Upper Arm] Pulse Oximetry 97 Oxygen Delivery Me thod 04/17/24 17:15 04/17/24 17:30 04/17/24 17:45 Temperature Pulse Rate 80 80 79 Pulse Rate [Pulse Oximeter] Respiratory Rate 14 Blood Pressure Blood Pressure [Le ft Arm] Blood Pressure [Ri ght Upper Arm] Pulse Oximetry 97 95 96 Oxygen Delivery Me thod 04/17/24 18:00 04/17/24 18:15 04/17/24 18:20 Temperature Pulse Rate 77 75 77 Pulse Rate [Pulse Oximeter] Respiratory Rate 15 13 10 L Blood Pressure 146/88 H Blood Pressure [Le ft Arm] Blood Pressure [Ri ght Upper Arm] Pulse Oximetry 97 97 96 Oxygen Delivery Me thod 04/17/24 18:21 03/12/25 18:30 04/17/24 18:45 Temperature Pulse Rate 78 75 79 Pulse Rate [Pulse Oximeter] Respiratory Rate 20 16 22 Blood Pressure Blood Pressure [Le ft Arm] Blood Pressure [Ri ght Upper Arm] Pulse Oximetry 96 97 97 Oxygen Delivery Me thod 04/17/24 19:00 04/17/24 20:00 04/17/24 20:15 Temperature Pulse Rate 77 71 69 Pulse Rate [Pulse Oximeter] Respiratory Rate 13 22 20 Blood Pressure Blood Pressure [Le ft Arm] Blood Pressure [Ri ght Upper Arm] Pulse Oximetry 96 94 96 Oxygen Delivery Me thod 04/17/24 20:30 04/17/24 20:41 04/17/24 20:45 Temperature Pulse Rate 74 72 72 Pulse Rate [Pulse Oximeter] Respiratory Rate 18 16 Blood Pressure 159/81 H Blood Pressure [Le ft Arm] Blood Pressure [Ri ght Upper Arm] Pulse Oximetry 93 95 95 Oxygen Delivery Me thod 04/17/24 20:59 04/17/24 23:00 04/17/24 23:00 Temperature 99.0 F 98.9 F Pulse Rate Pulse Rate [Pulse Oximeter] 75 87 87 Respiratory Rate 18 18 Blood Pressure Blood Pressure [Le ft Arm] 176/99 H 160/81 H Blood Pressure [Ri ght Upper Arm] Pulse Oximetry 94 94 Oxygen Delivery Me thod Room Air Room Air 04/17/24 23:00 04/18/24 01:00 04/18/24 03:00 Temperature Pulse Rate 73 Pulse Rate [Pulse Oximeter] 77 77 Respiratory Rate Blood Pressure Blood Pressure [Le ft Arm] Blood Pressure [Ri ght Upper Arm] Pulse Oximetry Oxygen Delivery Me thod 04/18/24 03:00 04/18/24 03:00 04/18/24 05:00 Temperature 98.9 F Pulse Rate Pulse Rate [Pulse Oximeter] 75 75 77 Respiratory Rate 16 16 Blood Pressure Blood Pressure [Le ft Arm] 134/70 134/70 Blood Pressure [Ri ght Upper Arm] Pulse Oximetry 95 95 Oxygen Delivery Me thod Room Air Room Air 04/18/24 07:00 04/18/24 07:00 04/18/24 07:00 Temperature 97.6 F Pulse Rate 79 Pulse Rate [Pulse Oximeter] 69 69 Respiratory Rate 16 Blood Pressure Blood Pressure [Le ft Arm] 140/84 H Blood Pressure [Ri ght Upper Arm] Pulse Oximetry 93 Oxygen Delivery Me thod Room Air 04/18/24 09:00 04/18/24 11:00 04/18/24 11:00 Temperature 98 F Pulse Rate Pulse Rate [Pulse Oximeter] 65 73 73 Respiratory Rate 16 Blood Pressure Blood Pressure [Le ft Arm] 149/78 H Blood Pressure [Ri ght Upper Arm] Pulse Oximetry 94 Oxygen Delivery Me thod Room Air DS: Data Data Completed and Pending Labs on day of discharge: Labs from last 24 hours 04/18/24 04/17/24 06:18 15:18 WBC 4.94 5.46 RBC 4.15 4.26 Hgb 13.7 13.9 Hct 41.5 43.1 MCV 100 101 H MCH 33 33 MCHC 33 32 RDW Coeff of Esme 12.8 Plt Count 189 190 Neut % (Auto) 55.8 Lymph % (Auto) 31.1 Grainger % (Auto) 8.4 Eos % (Auto) 4.0 Baso % (Auto) 0.5 Neut # (Auto) 3.04 Lymph # (Auto) 1.70 Grainger # (Auto) 0.50 Eos # (Auto) 0.22 Baso # (Auto) 0.03 Abs Immat Gran (auto) 0.01 Imm/Tot Granulo (auto) 0.2 INR 1.07 APTT 25 Sodium 137 136 Potassium 3.4 L 3.8 Chloride 106 103 Carbon Dioxide 23 25 Anion Gap 8 8 BUN 10 11 Creatinine 0.5 0.5 Estimated Creat Clear 42.62 42.62 Estimated GFR 98 98 Glucose 108 115 Hemoglobin A1c 5.8 H Calcium 8.6 8.8 Total Bilirubin 0.8 0.6 Direct Bilirubin 0.3 AST 57 H 64 H ALT 46 H 53 H Alkaline Phosphatase 63 71 Total Protein 6.4 7.0 Albumin 3.9 4.3 Triglycerides 126 Cholesterol 191 LDL Cholesterol, Calc 112 H HDL Cholesterol 54 TSH 4.600 H Discharge Plan Discharge Disposition: Home, Self-Care Date of Admission: 04/17/24 22:13 Attending Provider on Discharge: Zhanna Blackburn Primary Care Provider: Shimon Xavier Condition: Improved Anticipated Discharge Date/Time: 04/18/24 11:25 Discharge Medications: Continued metoprolol succinate 50 mg tablet extended release 24 hr 50 mg PO DAILY sertraline 100 mg tablet 100 mg PO DAILY rosuvastatin 20 mg tablet 20 mg PO QPM pramipexole 0.5 mg tablet 0.5 mg PO QPM doxycycline monohydrate 50 mg capsule 50 mg PO DAILY cyclosporine [Restasis] 0.05 % dropperette 1 drp ophthalmic (eye) Q12H Patient Comments: [NO ORIGINAL SIG] metronidazole 0.75 % cream 1 applic topical BID gabapentin 100 mg capsule 100 mg PO QPM Discharge Orders: Discharge Order (Routine); Ordered 04/18/24 Ordered By: Kiley Serrano Patient Education: Dizziness (ED), Alcohol Use Disorder (DC) Additional Instructions: Given your elevated liver tests, we recommend stopping all alcohol use going forward. Activity Level: Activity as Tolerated Discharge Diet: Regular Follow Up Appointments: Shimon Xavier MD [Primary Care Provider] - 04/25/24 1:20 pm ([facility] for post-hospital follow-up appointment. ) Forms: [employer] Info Instructions
--- NOTE | 2024-04-18 14:25 | PC.SOCIAL ---
Discharge planning: dredge worker met with pt and her daughter, Roxanne, this afternoon. Pt will be discharging home today. Pt's daughter lives nearby and pt's sister is driving down from the [place] this afternoon to stay with the pt through the weekend. dredge worker also offered the pt resources on alcohol use and stopping drinking. Pt stated that she did not want any resources at this time, but took this delinquency prevention social worker's contact information if she changes her mind to call and request resources. Social work to follow-up as needed.
--- NOTE | 2024-04-18 17:06 | PC.NURSE ---
Pt discharged @ 1701 via ambulation, accompanied by daughter. Back to home. Belonging and discharge forms signed. Pt AxOx4, no pain or nausea present. 2 IVs removed. Final room check complete.
== END 2024-04-18 17:01 | disposition home or self-care (01) | DRG 149 ==
LOC: ED 18:39 → MEDSURG 20:49
PROVIDERS: Admitting Provider Physician Assistant; Emergency Provider Family Medicine; PCP Family Medicine; Visit Provider Family Medicine
DX: R42 Dizziness and giddiness (principal); R26.89 Other abnormalities of gait and mobility; G31.84 Mild cognitive impairment of uncertain or unknown etiology; Z86.73 Personal history of transient ischemic attack (TIA), and cerebral infarction without residual deficits; I10 Essential (primary) hypertension; F10.10 Alcohol abuse, uncomplicated; I12.9 Hypertensive chronic kidney disease with stage 1 through stage 4 chronic kidney disease, or unspecified chronic kidney disease; N18.9 Chronic kidney disease, unspecified; Z79.82 Long term (current) use of aspirin; F41.9 Anxiety disorder, unspecified; G25.81 Restless legs syndrome; E55.9 Vitamin D deficiency, unspecified; G47.00 Insomnia, unspecified; L65.9 Nonscarring hair loss, unspecified; L71.8 Other rosacea
CPT/HCPCS: 36415; 70450; 70496; 70498; 70544; 70549; 70551; 70552; 80048; 80053; 80061; 80076; 83036; 84443; 85025; 85027; 85610; 85730; 93005; 93306; 94761; 97161; 97165; 99285; A9270; A9575; Q9967